=== PATIENT | female | born 1940 | race Caucasian/White ===

== ENCOUNTER 2023-12-07 09:45 | Day surgery (SDC) | payer MEDICARE, BC, SELFPAY ==
--- NOTE | 2023-12-07 | PATH_ITS ---
[facility] Accession Number: [id number] No. of containers..02 Tissue . 01 Material submitted: . PART A: colon - CECAL MASS PART B: rectum - RECTAL POLYP . 01 Diagnosis: Part A: CECAL MASS: 1. Colonic tissue with invasive adenocarcinoma, moderately differentiated. 2. No lymphovascular or perineural invasion identified. See comment. . Part B: RECTAL POLYP: Tubular adenoma. [facility] 12/09/2023 1143 Local . 01 Comment: Part A: These results were discussed with Dr. Bahena by Dr. Gibson on 12/09/2023 at 1125. The case has also been reviewed by Dr. Mcclellan, who concurs with the diagnosis. . 01 Electronically signed: . Jacinto Gibson MD, Pathologist NPI- [id number] . 01 Gross description: . Part A: CECAL MASS: Received in formalin are 2 fragment(s) of mckenzie, soft tissue measuring 0.2 x 0.2 x 0.2 cm to 0.3 x 0.3 x 0.3 cm submitted entirely in 1 cassette(s) . Part B: RECTAL POLYP: Received in formalin are 2 fragment(s) of mckenzie, soft tissue measuring 0.2 x 0.2 x 0.2 cm to 0.5 x 0.3 x 0.3 cm submitted entirely in 1 cassette(s) /IVET 12/09/2023 1143 Local . 01 Pathologist provided ICD-10: C18.0, D12.8 . 01 CPT . 554614, 242388, B87667, G70951 Specimen Comment: A courtesy copy of this report has been sent to [phone] Performed at: 01 [facility] [address] [place] [address] [address], [place], [place] [id number] MD Jacinto Gibson MD Phone: [phone]
[2023-12-07] MEDS: LACTATED RINGERS 1,000 ML 42 ML IV (11:05)
--- NOTE | 2023-12-07 11:10 | PM.HP.1 ---
History of Present Illness History of Present Illness Chief complaint: Dx Colonoscopy Narrative: Hematochezia [facility] Medical History (Updated 12/07/23 @ 11:07 by Jasmine Vieyra RN) Hemorrhoid Depression Hypercholesteremia Hypertension Breast cancer Rectal bleeding Aortic stenosis Meds Home Medications and Allergies Home Medications Medication Instructions Recorded Confirmed Type anastrozole 1 mg tablet 1 mg PO DAILY 12/07/23 12/07/23 History anastrozole 1 mg tablet 1 mg PO DAILY 12/07/23 12/07/23 History sertraline 50 mg tablet 50 mg PO DAILY 12/07/23 12/07/23 History Allergies Allergy/AdvReac Type Severity Reaction Status Date / Time No Known Drug Allergies Allergy Verified 12/07/23 11:03 Exam Narrative Exam Narrative: Oropharynx free of lesions Chest clear to auscultation percussion Cardiac exam reveals mild says systolic ejection murmur Assessment & Plan Assessment & Plan narrative: Rectal bleeding with virtually every bowel movement rule out neoplasia versus hemorrhoids. Risks, benefits, alternatives have been explained.
--- NOTE | 2023-12-07 11:11 | PM.OP.COLON ---
Operative Date/Time/Diagnoses Date of procedure: 12/07/23 Pre-op diagnosis: See indication and findings Procedure & Clinicians Study performed: Colonoscopy Indications: Rectal bleed Surgeon: Porfirio Bahena Procedure Notes Procedure in detail: After informed consent was obtained the patient was placed in left lateral decubitus position. The video colonoscope was introduced the rectum slowly advanced to the cecum. Preparation was good. On slow withdrawal mucosa was carefully examined. The scope was removed. The patient tolerated procedure well. Blood loss none Complications none Sedation mac Findings 1. Tortuous colon but eventually the cecum were just above the cecum was reached. 2. Mass lesion within what appears to be the cecum consistent with carcinoma. Biopsies taken which were soft to firm. 3. 8 mm sessile polyp at the anal verge appearing adenomatous and inside the dentate line. Cold biopsy taken and polyp removed. 3. Mild internal hemorrhoids without much bulbous this to them. No external hemorrhoid seen. I suggest that we Fadia have an appointment made with [facility] for consideration of right hemicolectomy. We will be in touch regarding the biopsies. For I are are start call you on this I well 3 prior your 1 are 1
[2023-12-07 11:15] VITALS: BP 125/50; PULSE 60; RESP 16; TEMP 36.3; O2SAT 96
[2023-12-07 12:31] VITALS: BP 97/33; PULSE 67; RESP 22; TEMP 36.9; O2SAT 92
[2023-12-07 12:36] VITALS: BP 108/50; PULSE 69; RESP 20; O2SAT 95
[2023-12-07 12:45] VITALS: BP 132/54; PULSE 65; RESP 20; O2SAT 96
[2023-12-07 12:49] VITALS: BP 132/46; PULSE 62; RESP 25; TEMP 36.7; O2SAT 98
[2023-12-07 12:57] VITALS: BP 117/40; PULSE 61; RESP 18; O2SAT 100
== END 2023-12-07 13:11 | disposition home or self-care (01) ==
PROVIDERS: PCP Nurse Practitioner Family; Referring Provider Nurse Practitioner; Visit Provider Internal Medicine Gastroenterology
PROC: 0DJD8ZZ Inspection of Lower Intestinal Tract, Via Natural or Artificial Opening Endoscopic (ICD-10-PCS; CPT 45378; principal; 2023-12-07 11:30)
DX: C18.0 Malignant neoplasm of cecum (principal); K64.8 Other hemorrhoids; D12.8 Benign neoplasm of rectum
CPT/HCPCS: 45380; J2704

== ENCOUNTER → 2023-12-14 11:40 | Outpatient (CLI) | payer MEDICARE, BC, SELFPAY ==
--- NOTE | 2023-12-14 11:43 | DI.CT.S_ITS ---
PROCEDURE: CT CHEST ABD PEL W CON INDICATIONS: colon mass staging TECHNIQUE: After the administration of intravenous contrast, 5 mm thick sections acquired from the lung apices to the symphysis. 5 mm coronal and sagittal reformats were performed, with additional 7 mm MIP reformats through the lungs. For radiation dose reduction, the following was used: automated exposure control, adjustment of mA and/or kV according to patient size. COMPARISON: None. FINDINGS: Image quality: Excellent. CHEST: Lower Neck: No enlarged lymph nodes. Thyroid: No thyroid nodules which require sonographic follow up, per consensus guidelines. Axillae: No enlarged lymph nodes. Chest Wall: Unremarkable. Lungs and Pleura: No pneumothorax or pleural effusions. Multiple solid pulmonary micro nodules. For example: -3 mm solid nodule, posterior left upper lobe (series 5, image 124). -4 mm solid nodule, posterior right upper lobe (series 5, image 111). Heart: Heart size is enlarged. No pericardial effusion. Two vessel coronary calcifications. Thoracic Vessels: The aorta and pulmonary arteries demonstrate normal size. Mediastinum and Eri: No enlarged lymph nodes. Esophagus: No wall thickening. No hiatal hernia. Oral contrast within the esophagus, suggestive of reflux or esophageal dysmotility. ABDOMEN: Liver: Scattered subcentimeter hypoattenuating lesions, too small to characterize by CT. Gallbladder: No radiopaque gallstones or wall thickening. Biliary ducts: No biliary dilation. Pancreas: No ductal dilation. Spleen: Size is within normal limits. Adrenal Glands: No adrenal nodules. Kidneys and Ureters: No hydronephrosis. No solid mass. No complex renal cystic lesion which requires follow up. Stomach and Bowel: Cecal mass encapsulating in the terminal ileum measuring 5.6 x 4.1 x 7.2 cm. Colonic diverticulosis without evidence of diverticulitis. Peritoneum: No abnormal intraperitoneal fluid. No free air. Ventral Wall: No significant ventral hernia. Abdominal Nodes: Enlarged mesenteric lymph nodes associated with the SMV. Examples include: -9 mm short axis node (series 2, image 94). -9 mm short axis node (series 2, image 95). Vessels: Aorta and inferior vena cava are normal in size. PELVIS: Pelvic Organs: Unremarkable. Bladder: No bladder wall thickening, accounting for underdistention. Pelvic Nodes: No enlarged lymph nodes. Miscellaneous: No inguinal hernias are seen. Bones: No aggressive osseous abnormality. IMPRESSION: Cecal mass encapsulating the terminal ileum measuring 5.6 x 4.1 x 7.2 cm. Regional mesenteric adenopathy. Multiple solid pulmonary micro nodules, indeterminate for metastatic disease. Close attention on follow-up. Scattered subcentimeter hypoattenuating liver lesions, too small to characterize by CT but probably small cysts. Dictated by: Wiliam Sung M.D. on 12/14/2023 at 14:56 Approved by: Wiliam Sung M.D. on 12/14/2023 at 15:05
[2023-12-14 12:16] LABS: BUN Creatinine Ratio 20.2 (6-22); Blood Urea Nitrogen 17 mg/dL (7-17); Calcium 8.7 mg/dL (8.4-10.2); Carbon Dioxide 27 mmol/L (22-32); Chloride 108 mmol/L (98-107); Estimated Glomerular Filt Rate > 60 mL/min (>60); Glucose 148 mg/dL (80-110); HEMOLYSIS < 15 (0-50); Potassium 4.2 mmol/L (3.4-5.1); Sodium 142 mmol/L (137-145)
[2023-12-14 12:46] LABS: Carcinoembryonic Antigen 2.4 ng/mL (0.1-3.0)
[2023-12-14 12:57] LABS: Add Manual Diff / Slide Review NO; Basophils Absolute Auto 100 /uL (0-100); Basophils Percent Auto 0.8 % (0-2); Eosinophils Absolute Auto 100 /uL (0-450); Eosinophils Percent Auto 1.1 % (2-4); Hematocrit 21.5 % (36-46); Lymphocytes Absolute Auto 1400 /uL (1100-4500); Mean Corpuscular Hemoglobin 27.6 PG (26-34); Mean Corpuscular Volume 89.1 fL (80-100); Monocytes Absolute Auto 1200 /uL (0-900); Monocytes Percent Auto 9.1 % (3-14); Neutrophils Absolute Auto 9800 /uL (1500-7000); Platelet Count 371 X10^3/uL (150-400); Red Blood Cell Count 2.41 X10^6/uL (4.0-5.2); Red Cell Distribution Width 17.5 % (11.6-14.8); White Blood Cell Count 12.6 X10^3/uL (4.5-11.0)
[2023-12-14 13:32] LABS: Hemoglobin 6.7 g/dL (12.0-16.0)
== END ==
PROVIDERS: PCP Nurse Practitioner Family; Referring Provider Surgery; Visit Provider Surgery
DX: K63.89 Other specified diseases of intestine (principal); R91.8 Other nonspecific abnormal finding of lung field; I25.10 Atherosclerotic heart disease of native coronary artery without angina pectoris; K57.90 Diverticulosis of intestine, part unspecified, without perforation or abscess without bleeding; R59.0 Localized enlarged lymph nodes
CPT/HCPCS: 36415; 71260; 74177; 80048; 82378; 85025; Q9967

== ENCOUNTER 2023-12-23 09:06 | Inpatient (IN) | payer MEDICARE, BC, SELFPAY ==
[2023-12-21 11:41] VITALS: BMI 25.6
--- NOTE | 2023-12-22 15:25 | P.OP.PRE_ITS ---
Pre-operative Note Interval Note History & Physical reviewed/Exam performed by Physician: Yes Changes to H&P: Yes H&P completed within 30 days and has changed as indicated here:: 83-year-old woman with right colon cancer here for colectomy. Past medical history is significant for mild aortic stenosis hypertrophic cardiomyopathy and iron- deficiency anemia secondary to the bleeding tumor. She is symptomatic from her anemia hematocrit today 19.2. She is typed and crossed and we anticipate transfusion of 1-2 units perioperatively. After discussion with anesthesia it is felt she would benefit from an open operation as compared to a laparoscopic approach to optimize her cardiac function i.e. improve venous return and minimize operative time. I discussed this with the patient and she is in agreement we will switch the plan to open right hemicolectomy.
[2023-12-23] VITALS (26 sets, daily range): BP systolic 108–173; BP diastolic 43–73; PULSE 59–73; RESP 6–24; TEMP 36.1–37.1; O2SAT 90–100; BMI 24.8
--- NOTE | 2023-12-23 | PATH_ITS ---
[facility] Accession Number: [id number] No. of containers..01 Tissue . 01 Material submitted: . colon - RIGHT COLON . 01 Diagnosis: RIGHT COLON, HEMICOLECTOMY: Invasive adenocarcinoma, moderately differentiated, with the following features: . AJCC CANCER CASE SUMMARY: Procedure: Right hemicolectomy. . TUMOR Tumor site: Cecum. Histologic type: Adenocarcinoma. Histologic type comment: A mucinous component is present. Histologic grade: G2, moderately differentiated. Tumor size Greatest dimension: 7.6 cm. Additional dimensions: 3.2 x 2.5 cm. Tumor extent: Tumor invades through muscularis propria into the pericolonic tissue. Macroscopic tumor perforation: Not identified. Lymphatic and/or vascular invasion: Not identified. Perineural invasion: Not identified. Tumor budding score: Intermediate. Tumor comment: Tumor closely approaches the serosal surface (within 0.2 mm of the serosal surface), but does not involve the serosal surface on the sections examined. . MARGINS Margin status: All margins negative for invasive carcinoma. Tumor is greater than 5 cm from all margins. . REGIONAL LYMPH NODES Number of lymph nodes with tumor: 1. Number of lymph nodes examined: 19. Tumor deposits: Not identified. . pTNM CLASSIFICATION (AJCC 8TH EDITION) pT category: pT3. pN category: pN1a. . [facility] 12/25/2023 1640 Local . 01 Electronically signed: . Jacinto Gibson MD, Pathologist NPI- [id number] . 01 Gross description: . Received in formalin with two patient identifiers and right colon, is a right colon with attached ileum measuring 2.0 cm in length by 1.9 cm in diameter attached with colon measuring 23.9 cm in length by 3.2 cm in average diameter with an appendix measuring 2.5 cm in length by 0.4 cm in diameter. The serosa is mckenzie and roughened with an area of puckering at the approximate area of the ileocecal valve measuring 2.3 cm in greatest dimension. The ileal margin is inked blue, the colon margin is inked black, the mesenteric and presumed radial margins are inked green, and the puckered area of serosa is inked red. The presumed remaining distal portion of the appendix is received detached and measures 1.7 cm in length by 0.5 cm in diameter. . Opening the specimen reveals an exophytic mass within the cecum adjacent to, but not grossly invading the ileocecal valve, measuring 7.6 x 3.2 x 2.5 cm. The lesion is located greater than 5 cm from all margins. Sectioning reveals the lesion to extend through the wall and grossly approach the red-inked area of puckered serosa. The remaining mucosa is pink-mckenzie and velvety with normal appearing folds, and no additional polyps or lesions identified. The egan average 0.3 cm with no diverticula identified. . Sectioning the appendix reveals a patent lumen averaging 0.1 cm in diameter with mckenzie intact egan that average 0.3 cm thick with no lesions identified. . Palpation reveals 19 mckenzie lymph node candidates ranging from 0.3 to 1.6 cm in greatest dimension. . Second Facing Baster sections are submitted as follows: A1: Black margin en face. A2: Blue and rep green margins en face. A3-A5: Lesion to nearest red-inked serosa. A6-A7: Lesion to normal. A8: Ileocecal valve. A9: Unremarkable mucosa. A10: One-half of bisected distal tip and cross-sections of appendix. A11: Single lymph node candidate that fragmented upon palpation. A12: Single bisected lymph node candidate. A13: Single lymph node candidate that is bisected and had partial fragmentation upon palpation. A14: Two bisected, differentially inked lymph node candidates. A15: Three intact lymph node candidates. A16: Five intact lymph node candidates. A17: Three intact lymph node candidates. A18: Three intact lymph node candidates. ([id number]) /MRV 12/24/2023 1251 Local . 01 Pathologist provided ICD-10: C18.0 . 01 CPT . 862065 Specimen Comment: A courtesy copy of this report has been sent to [phone] Performed at: 01 [facility] [address] [facility] [place] [facility] [place], [place], [place] [id number] MD Jacinto Gibson MD Phone: [phone]
[2023-12-23 10:10] LABS: Mean Corpuscular HGB Conc 30.7 % (30-36); Mean Corpuscular Hemoglobin 26.9 PG (26-34); Mean Corpuscular Volume 87.8 fL (80-100); Platelet Count 384 X10^3/uL (150-400); Red Blood Cell Count 2.18 X10^6/uL (4.0-5.2); Red Cell Distribution Width 17.1 % (11.6-14.8); White Blood Cell Count 8.9 X10^3/uL (4.5-11.0)
[2023-12-23 10:19] LABS: Hematocrit 19.2 % (36-46); Hemoglobin 5.9 g/dL (12.0-16.0)
--- NOTE | 2023-12-23 10:21 | SUR.PREOP ---
Critical Hbg 5.9 and Hct 19.2; Discussed with doctor Reyes face to face; plan to administer PRBCs per orders.
[2023-12-23] MEDS: LACTATED RINGERS 1,000 ML 21 ML IV ×2 (10:41→16:12)
[2023-12-23] MEDS: PIPERACILLIN/TAZO 3.375 GM in SODIUM CHLORIDE 0.9% 100 ML IV (11:53)
[2023-12-23] MEDS: BUPIVACAINE 0.25% (PF) VIAL 30 ML INJ (12:11)
[2023-12-23] MEDS: ACETAMINOPHEN IV 1,000 MG/100 ML VIAL 400 MG IV (12:11)
--- NOTE | 2023-12-23 12:36 | SUR.OPER ---
Supine on padded OR bed, head on pillow, right arm padded and tucked at side, left arm secured on padded armboard @ <90 degrees, legs uncrossed, pillow under knees, gel pad under upper thighs & bilateral heels,safety belt at thigh, tape over blanket over lower legs .
--- NOTE | 2023-12-23 12:50 | PM.AN.INVM ---
Invasive Monitor Note Procedure Procedure: Arterial Catheter Insertion Start Time: :15 Stop Time: :28 Indication: Intraoperative Hemodynamic Monitoring Timeout: :15 Barrier Precautions Utilized: Cap, Hand Hygiene, 2% Chlorhexidine Cutaneous Antisepsis, Sterile Gloves and Maintenance of Sterile Field Vessel Utilized: Radial Artery: Left Lines Catheters Utilized: 20 G Arrow Arterial Catheter Insertion Site Care: Sterile Occlusive Dressing Applied Ultrasound Ultrasound Guidance Utilized: Yes Ultrasound was used to identify the vessel. Assessed vessel was patent.: Radial Artery Ultrasound was used to visualize vascular needle entry into the: Radial Artery Limited exam reveals anatomically normal vessel with no apparent abnormal findings.: Yes Permanent ultrasound image obtained and interpretation documented.: No Complications Complications: none
--- NOTE | 2023-12-23 14:15 | PM.OP.1 ---
Operative Date/Time/Diagnoses Date of procedure: 12/23/23 Time of procedure: 14:15 Pre-op diagnosis: Colon cancer Post-op diagnosis: same Procedure & Clinicians Procedure: Open right hemicolectomy Same procedure as scheduled: Yes Indications: Fadia is an 83-year-old woman with symptomatic anemia found to have a large ulcerated mass of the right colon. Pathology demonstrates adenocarcinoma. Her staging workup suggests mesenteric lymphadenopathy no evidence of distant disease. Following discussion with the patient and her family she elects to proceed with a right hemicolectomy. She has a history of aortic stenosis and hypertrophic cardiomyopathy and following discussion with anesthesia we opted to proceed with a open colectomy as opposed to laparoscopic to optimize her cardiac function. Surgeon: Ervin Reyes Contemporary Or Modern Dancer: Vadim Berry Anesthesia Type: General and Peripheral nerve block (Tap) Operative Notes Findings: Firm mass within the cecum. Mild mesenteric lymphadenopathy. No evidence of distant metastatic disease Specimen(s): other (Right colon) Estimated Blood Loss (mL): 50 Procedure in detail: Patient was brought to the operating room placed supine on the table. Bilateral lower extremity compression devices were applied. General anesthesia was induced and she was intubated with an endotracheal tube. She received 3.375 g of Zosyn prior to skin incision. Dawson catheter was sterilely placed. She was prepped and draped in sterile fashion time-out was performed. Midline incision was made in the abdomen was entered. A general inspection of the abdomen was made and we saw no evidence of metastatic disease there is a firm mass within the cecum. We began with mobilization of the right colon from a lateral to medial approach. We began by opening the gastro colic ligament. Dissection was continued to the hepatic flexure. The sweep the duodenuml was visualized and the duodenum was left in the retroperitoneum out of harm's way. And then we followed the white line of Toldt inferiorly to the cecum. The attachments to the terminal ileum or dissected. We examined the psoas and the bifurcation of the iliac vessels in search for the right ureter and identified a structure consistent with the ureter. This was kept posterior out of harm's way. A window within the mesentery to the terminal ileum was made in the bowel was divided with the linear stapler BEATRIZ 75 mm blue. A similar window was made just distal to the hepatic flexure and the colon was divided in the same fashion. The mesentery was then divided using the LigaSure. Dissection was carried down to the point of takeoff for the ileocolic pedicle and this was suture ligated twice on the stay side and then sealed on the specimen side. The right colon/specimen was passed off the field. We then fashioned a [id number] functional end and anastomosis. A colotomy and an enterotomy or made in each limb and a 3rd staple load was used to create a common channel. The anastomosis was inspected it was widely patent and hemostatic. Crotch stitch was placed for reinforcement. The common opening was then closed in a running fashion using PDS suture and was imbricated using a 2nd layer of silk suture. The anastomosis was under no tension and was well perfused without evidence of leak. The mesenteric defect was then closed using a Vicryl suture. The abdomen was irrigated with sterile saline returned clear hemostasis was checked once again and then the abdomen was closed using a 1. PDS suture. The subcutaneous tissue was reapproximated using 3-0 Vicryl and the skin closed with 4-0 Monocryl followed by the application of Dermabond. Patient tolerated the operation well they were extubated and transferred to recovery in stable condition. Complications: none Post-operative Condition: stable Disposition: Acute Care
[2023-12-23 15:49] LABS: Hemoglobin 8.4 g/dL (12.0-16.0); Mean Corpuscular HGB Conc 32.2 % (30-36); Mean Corpuscular Hemoglobin 28.2 PG (26-34); Mean Corpuscular Volume 87.6 fL (80-100); Platelet Count 348 X10^3/uL (150-400); Red Blood Cell Count 2.97 X10^6/uL (4.0-5.2); Red Cell Distribution Width 16.1 % (11.6-14.8); White Blood Cell Count 12.1 X10^3/uL (4.5-11.0)
[2023-12-23] MEDS: ACETAMINOPHEN 325 MG TABLET 650 MG PO (19:24)
[2023-12-24 02:57] VITALS: O2SAT 98
--- NOTE | 2023-12-24 06:11 | PC.NURSE ---
assistant casino shift manager [employer] notified that patients total urine output 375mL. dark yellow with some sediment in catheter bag. Pt denies fever,chills,sob, or flank pain. Pt does have some post opt pain in center abdominal area, abdominal dressing CDI. VS WNL. VEGETABLE SPECKER bladder scanned Pt and no residual urine was found. Pt only fluid intake has been IVF going at 21mL/hr since coming to floor. 230mL in during shift supervisor melting and 375 mL output.
[2023-12-24 06:16] LABS: Add Manual Diff / Slide Review NO; Basophils Absolute Auto 0 /uL (0-100); Basophils Percent Auto 0.3 % (0-2); Eosinophils Absolute Auto 0 /uL (0-450); Hemoglobin 7.9 g/dL (12.0-16.0); Lymphocytes Absolute Auto 900 /uL (1100-4500); Lymphocytes Percent Auto 6.8 % (25-40); Mean Corpuscular HGB Conc 31.7 % (30-36); Mean Corpuscular Hemoglobin 27.6 PG (26-34); Monocytes Absolute Auto 1100 /uL (0-900); Monocytes Percent Auto 8.5 % (3-14); Neutrophils Absolute Auto 10900 /uL (1500-7000); Neutrophils Percent Auto 84.4 % (50-75); Platelet Count 331 X10^3/uL (150-400); Red Blood Cell Count 2.88 X10^6/uL (4.0-5.2); Red Cell Distribution Width 16.2 % (11.6-14.8); White Blood Cell Count 12.9 X10^3/uL (4.5-11.0)
[2023-12-24 06:23] LABS: BUN Creatinine Ratio 14.8 (6-22); Blood Urea Nitrogen 9 mg/dL (7-17); Carbon Dioxide 26 mmol/L (22-32); Chloride 111 mmol/L (98-107); Estimated Glomerular Filt Rate > 60 mL/min (>60); Glucose 112 mg/dL (80-110); HEMOLYSIS < 15 (0-50); Potassium 3.6 mmol/L (3.4-5.1); Sodium 138 mmol/L (137-145)
[2023-12-24 08:00] VITALS: BP 124/49; PULSE 65; RESP 16; TEMP 36.9; O2SAT 94
[2023-12-24] MEDS: ACETAMINOPHEN 325 MG TABLET 650 MG PO ×2 (09:00→16:57)
[2023-12-24] MEDS: SERTRALINE 50 MG TABLET PO (09:01)
[2023-12-24] MEDS: ENOXAPARIN 40 MG/0.4 ML SYRINGE SUBCUT (09:01)
[2023-12-24] MEDS: ANASTROZOLE 1 MG TABLET PO (09:01)
--- NOTE | 2023-12-24 09:58 | OT.IP.EVAL ---
Current Diagnoses Malignant neoplasm of colon, unspecified (12/23/23) Surgery Performed Operation Date: 12/23/23 10:45 Actual Procedures p Right Hemicolectomy(Right) - Ervin Reyes MD Past Medical History (Last Updated 12/22/23 @ 07:16 by Jesenia Cohen, RN) Anemia Aortic stenosis Breast cancer (~2013) Depression Easy bruisability Fibromyalgia Hemorrhoid Hypercholesteremia Hypertension Hypertrophic cardiomyopathy Rectal bleeding Surgical History (Last Updated 12/21/23 @ 12:10 by Jesenia Cohen RN) H/O lumpectomy Hx of bilateral cataract extraction Occupational Therapy Inpatient Evaluation/Re-Eval M1 PT/OT-IP Prior Functional Status Start: 12/24/23 08:40 Freq: NEEDED Status: Active Protocol: Document 12/24/23 12:02 CGR (Rec: 12/24/23 12:39 CGR [id number]) Medical Review Prior Functional Status Medical History Reviewed Yes Diet/Fluid Consistency Regular Communication Pt is an effective verbal communicator. Mobility and Gait Pt has a SPC but does not use. Per P.T. report, pt has a hx of falls. Activities of Daily Living and IADL's Pt was IND in all ADLs and I ADLs. She has sons in the area that come to help with lawn etc. Social History Household Members none Living Arrangements House Number of Floors (Floors) Two Floors Number of Stairs To Enter/Railing? Pt states that there are multiple steps inside to negociate between rooms: 2 steps with one rail into dining room and 1 step with 2 rails to enter home Home Environment Tub/Shower Home Equipment Straight Cane,Grab Bars Near Toilet,Grab Bars In Shower Employment Status Retired Additional Social History Comment Pt has a walking stick at home . 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 M2 OT-IP Current Condition Start: 12/24/23 12:01 Freq: Status: Active Protocol: Document 12/24/23 12:02 CGR (Rec: 12/24/23 12:39 CGR [id number]) Occupational Therapy Current Condition Current Condition Evaluation Date 12/24/23 Treatment Diagnosis 12/23/23 R open hemicolectomy for carcinoma Diagnosis Onset Date 12/23/23 M3 OT- IP Subjective and Pain Start: 12/24/23 12:01 Freq: Status: Active Protocol: Document 12/24/23 12:02 CGR (Rec: 12/24/23 12:39 CGR [id number]) OT- Subjective Occupational Therapy Visit Type Type Initial Evaluation Visit Start Time 09:30 Visit Stop Time 09:58 OT Pain Assessment Pain When Pain Assessed During Mobility Pain Present Pain Present Pain Reported Location Abdomen Intensity 5 Scale Used Numeric (0 - 10) Management Techniques Distraction,Modification of Treatment,Re-positioning, Timing of Activity with Medications M4 OT- IP ADL's Start: 12/24/23 12:01 Freq: Status: Active Protocol: Document 12/24/23 12:02 CGR (Rec: 12/24/23 12:39 CGR [id number]) OT [id number] Comments OT Self-Feeding Comments not meal time OT ADL-Grooming General Evaluation Grooming Ability Standby Assistance Areas Needing Assistance Face Washing Comments OT Grooming Comments standing at sink OT ADL-Oral Care General Eval Oral Care Ability Standby Assistance Areas of Assistance Brushing Teeth Comments Oral Care Comments standing at sink OT ADL-Dressing General Eval Lower Body Dressing Ability Standby Assistance Areas Needing Assistance Socks Comments OT Dressing Comments seated in chair pt demonstrated ability to doff and don socks to both LE. OT ADL-Toileting General Evaluation Toileting Ability Independent Comments OT Toileting Comments Pt attemtped to urinate seated on toielt. She was unable to void OT ADL-Bathing Comments OT Bathing Comments not performed M5 OT- IP IADL's Start: 12/24/23 12:01 Freq: Status: Active Protocol: Document 12/24/23 12:02 CGR (Rec: 12/24/23 12:39 CGR [id number]) OT-Instrumental Activities of Daily Living Deficits IADL Deficits Identified No Deficits Home Safety Awareness Awareness of Need for Assistance at Home Good Awareness Ability to Problem Solve Emergency Able to Problem Solve Situations Medication Management Medication Management No Deficits Identified Money Management Money Management No Deficits Identified Meal Preparation Meal Preparation No Deficits Identified Furniture Finisher Furniture Finisher No Deficits Identified Driving Driving Comments 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 M6 OT- IP Functional Cognition Start: 12/24/23 12:01 Freq: Status: Active Protocol: Document 12/24/23 12:02 CGR (Rec: 12/24/23 12:39 CGR [id number]) Cognitive Factors Limiting Selfcare Function Cognitive Ability Level of Alertness Alert Patient Orientation Name,Age,Birthday,Month,Date, Year,Day of Week,Place, Situation Attention Span Ability Capable of Focused Attention, Capable of Sustained Attention Ability to Follow Commands Able to Follow One Step Commands with Increased Time, Able to Follow One Step Commands with Repetition OT- Vision and Hearing OT- Hearing Assessment OT- Hearing Assessment WFL OT- Vision Assessment Visual Acuity Glasses For Reading Visual Attentiveness WFL Vision Assessment Comments Attempted occular pursuits and pt was unable to consistently follow. Pt states she sees the finger to follow and inconsistently follows. M7 OT- IP Mobility and Balance Start: 12/24/23 12:01 Freq: Status: Active Protocol: Document 12/24/23 12:02 CGR (Rec: 12/24/23 12:39 CGR [id number]) OT-Transfer Assessment Sit to and From Stand Sit to and from Stand Standby Assistance Transfers Transfer Ability Standby Assistance Technique Transfer Destination Chair,Toilet Transfer Technique Stand Step Pivot Devices Transfer Assistive Devices Gait Belt,Front Wheeled Walker Comments Mobility Comments Pt moved around the room with SBA but with SOB with minimal exertion. OT- Balance Assessment Sitting Balance and Reactions Static Sitting Balance Ability Good Dynamic Sitting Balance Ability Good M8 OT- IP Objective Assessments Start: 12/24/23 12:01 Freq: Status: Active Protocol: Document 12/24/23 12:02 CGR (Rec: 12/24/23 12:39 CGR [id number]) OT Gross Range of Motion Upper Extremity Range of Motion Assessment Within Functional Limits OT Strength Upper Extremity Strength Assessment Within Functional Limits Comments Strength Comments 3+/5 OT- Coordination Assessment Upper Extremity Finger to Nose Test Within Functional Limits Finger Tapping Test Within Functional Limits OT-Muscle Tone Assessment Muscle Tone WNL Yes OT Sensation Assessment Edema Edema Absent M9 OT- IP Assessment and Plan Start: 12/24/23 12:01 Freq: Status: Active Protocol: Document 12/24/23 12:02 CGR (Rec: 12/24/23 12:39 CGR [id number]) OT Summary Assessment and Plan Potential Rehabilitation Potential Good Analytic Complexity at Evaluation Low Summary OT Impairments Strength,Functional Mobility, Bathing,Shower Transfers, Activity Tolerance Progress Towards Goals Progressing Toward Goals Assessment Summary Pt presents as a low complexity evaluation s/p admit for R open hemicolectomy for carcinoma. Pt is progressing well and appears to be close to her baseline for most ADLs but her activity tolerance is much lower than her baseline. Pt will continue to benefit from OT services and recommend d/c home with family support and home health services. Goals Grooming Goal Independent Dressing Goal Independent Toileting Goal Independent Bathing Goal Independent Toilet Transfer Goal Independent Shower Transfer Goal Independent Days to Meet Goals 2 Frequency of Treatment Frequency Of Treatment Once a Day Treatment Plan OT Treatment Plan ADL Training,Functional Mobility,Patient/Family Education,Discharge Planning Other Treatment Recommendations and Next shower, energy conservation Treatment Focus Discharge Recommendations OT Discharge Recommendations Home,Home Health Transportation Needs at Discharge Private Vehicle
--- NOTE | 2023-12-24 11:51 | PT.IIE ---
Current Diagnoses Malignant neoplasm of colon, unspecified (12/23/23) Surgery Performed Operation Date: 12/23/23 10:45 Actual Procedures p Right Hemicolectomy(Right) - Ervin Reyes MD Surgical History (Last Updated 12/21/23 @ 12:10 by Jesenia Cohen, RN) H/O lumpectomy Hx of bilateral cataract extraction Medical History (Last Updated 12/22/23 @ 07:16 by Jesenia Cohen, RN) Anemia Aortic stenosis Breast cancer (~2013) Depression Easy bruisability Fibromyalgia Hemorrhoid Hypercholesteremia Hypertension Hypertrophic cardiomyopathy Rectal bleeding Physical Therapy Inpatient Evaluation/Re-Eval M1 PT/OT-IP Prior Functional Status Start: 12/24/23 08:40 Freq: NEEDED Status: Active Protocol: Document 12/24/23 10:45 MB (Rec: 12/24/23 11:27 MB [id number]) Medical Review Prior Functional Status Medical History Reviewed Yes Diet/Fluid Consistency Regular Communication WNLs Mobility and Gait I, had falls Activities of Daily Living and IADL's I Social History Household Members none Living Arrangements House Number of Floors (Floors) Two Floors Number of Stairs To Enter/Railing? Pt states that there are multiple steps inside to negociate between rooms: 2 steps with one rail into dining room and 1 step with 2 rails to enter home Home Environment Tub/Shower Home Equipment Straight Cane Employment Status Retired Additional Social History Comment Pt has a walking stick at home . OT to complete further home equipment at home. M2 PT-IP Current Condition Start: 12/24/23 08:40 Freq: NEEDED Status: Active Protocol: Document 12/24/23 10:45 MB (Rec: 12/24/23 11:27 MB [id number]) Physical Therapy Current Condition Current Condition Evaluation Date 12/24/23 Treatment Diagnosis Pt with right colon cancer and s/p partial colectomy M3 PT-IP Subjective Start: 12/24/23 08:40 Freq: NEEDED Status: Active Protocol: Document 12/24/23 10:45 MB (Rec: 12/24/23 11:27 MB [id number]) Subjective Physical Therapy Visit Type Type Initial Evaluation Visit Start Time 10:45 Visit Stop Time 11:00 Number of INVOICE CODER Visits 0 Physical Therapy Visit Comments Patient Comments Pt states that she is tired and would like to take a nap. Therapy Pain Assessment Pain When Pain Assessed At Rest Pain Present Pain Present Denied Pain M4 PT-IP Mobility and Gait Start: 12/24/23 08:40 Freq: NEEDED Status: Active Protocol: Document 12/24/23 10:45 MB (Rec: 12/24/23 11:27 MB [id number]) PT-Bed Mobility Assessment Rolling Level of Assist Independent Sit to Supine Sit to Supine Standby Assistance Scooting Scooting to Edge of Bed Standby Assistance PT-Transfer Assessment Sit to and From Stand Sit to and from Stand Contact Guard Assistance Equipment Transfer Assistive Device Gait Belt,Front Wheeled Walker Orthotic/Prosthetic Devices or Brace: No Transfers Transfer Destination Bed Transfer Technique Ambulating Transfer Ability Level of Assist Contact Guard Assistance,1 Person Assistance,Use of Upper Extremities Comments Mobility Comments Pt does a good job pushing up from the chair. Her O2 sats on RA at rest are 90% and they do not read again readily after short mobility. She reports 1/4 Dyspnea scale. Gait Assessment Gait Gait Assistance Required: Standby Assistance Distance (Feet) 40 Able to Maintain Weight Bearing Status No During Gait Assistive Devices Assistive Device Gait Belt,Front Wheeled Walker Orthotic/Prosthetic Devices or Brace: No Gait Deviations General Gait Pattern Decreased Stride Length, Decreased Feet Clearance, Flexed Trunk Factors Limiting Gait Function Factors Limiting Gait Function Decreased Activity Tolerance, Pain,Poor Balance,Poor Safety Awareness Comments Gait Comments Pt gait trains around the bed and back at least 40' with RW and slow mobility with SINGER. Pt reports her abdomen only feels uncomfortable. Pt states that she does not have room in her house for a walker given spread out sets of steps PT-Balance Assessment Sitting Balance and Reactions Static Sitting Balance Ability Good Dynamic Sitting Balance Ability Good Standing Balance and Reactions Static Standing Balance Ability Good Dynamic Standing Balance Ability Good Device Used RW M5 PT-IP Objective Assessments Start: 12/24/23 08:40 Freq: NEEDED Status: Active Protocol: Document 12/24/23 10:45 MB (Rec: 12/24/23 11:27 MB [id number]) Orientation Orientation/Cognition Level of Alertness Alert Orientation Name,Age,Birthday,Month,Date, Year,Day of Week,Place, Situation Language Function Ability No Deficits Noted Safety Awareness Decreased Safety Awareness Memory Description No Deficits Noted Comments Pt reports a history of falls d/t low blood (anemia) and she does not appear to have insight about ongoing fall and injury risk and that maybe having a different AD may be helpful in fall reduction. Pt has a life line that she does not have set up. Son to assist at d/c. Gross Range of Motion Upper Extremity ROM Impairments Defer to OT Lower Extremity ROM Assessment Within Functional Limits Strength Lower Extremity Strength Assessment Within Functional Limits M6 PT-IP Treatment Start: 12/24/23 08:40 Freq: NEEDED Status: Active Protocol: Document 12/24/23 10:45 MB (Rec: 12/24/23 11:51 MB [id number]) Physical Therapy Treatment Education Education Provided Safety M7 PT-IP Assessment and Plan Start: 12/24/23 08:40 Freq: NEEDED Status: Active Protocol: Document 12/24/23 10:45 MB (Rec: 12/24/23 11:51 MB [id number]) PT Summary Assessment and Plan Potential Rehabilitation Potential Fair Status of Condition at Evaluation Evolving Summary Impairments Pain,Balance,Bed Mobility, Transfers,Gait,Activity Tolerance Progress Towards Goals Progressing Toward Goals Assessment Summary Pt is an 83 y/o female presenting with SINGER after colon surgery and blood loss anemia. Her Hgb was 7.9 this a .m. She only states that she her abdomen is uncomfortable today and she does move slowly and with some antalgic movement. Pt will benefit from ongoing acute and post-acute PT to improve balance and I. Pt reports multiple falls at home d/t anemia and that she does not think a walker is useful in her home d/t many steps inside. Goals Bed Mobility Goal Independent Transfer Goal Independent,Cane,Front Wheeled Walker Gait Goal Independent,Cane,Front Wheel Walker Gait Distance 100 Other Goals Pt will ascend and descend 2 steps with one rail to allow safe home mobility. Days to Meet Goals 5 Frequency of Treatment Frequency Of Treatment Once a Day Treatment Plan Physical Therapy Treatment Plan Bed Mobility Training,Transfer Training,Gait Training, Therapeutic Exercise,Balance Retraining,Post Op Education, Discharge Planning,Hot or Cold Pack Precautions Abdominal Surgery Precautions Log Roll,Lifting Restrictions, Gait Belt above Incisional Area Weight Bearing Status Weight Bearing Status Weight Bear as Tolerated Recommendations To Nursing Amount of Assist Needed 1 Person Assist Discharge Recommendations PT Discharge Recommendations Home with 27/04 Assist Available,Home Health Other Discharge Recommendations Con't to assess if RW can be an option for home (may need two ADs in the home given steps) Transportation Needs at Discharge Private Vehicle
[2023-12-24 12:00] VITALS: O2SAT 94
--- NOTE | 2023-12-24 12:46 | PM.PNPO.1 ---
Subjective Subjective Date Patient Seen: 12/24/23 Time Patient Seen: 12:46 Interval history: POD 1 R hemicolectomy for cancer No acute overnight events Tolerating full liquid diet Minimal pain Exam Vital Signs (past 8 hours): - 12/24/23 08:00 12/24/23 08:00 Temperature 98.5 F Pulse Rate 65 Respiratory Rate 16 Blood Pressure 124/49 L Pulse Oximetry 94 94 Oxygen Delivery Method Room Air Oxygen Flow Rate 0 Oxygen Delivery Method Room Air Oxygen Flow Rate 0 Narrative Exam Narrative: Gen-Adult woman alert and oriented Abdomen-soft appropriately tender to palpation Objective Labs 12/24/23 05:50 12/24/23 05:50 Labs: Laboratory Results - last 24 hr 12/23/23 12/23/23 12/24/23 10:03 15:20 05:50 WBC 12.1 H 12.9 H RBC 2.97 L 2.88 L Hgb 8.4 L 7.9 L Hct 26.0 L 25.0 L MCV 87.6 87.0 MCH 28.2 27.6 MCHC 32.2 31.7 RDW 16.1 H 16.2 H Plt Count 348 331 Neut % (Auto) 84.4 H Lymph % (Auto) 6.8 L [place] % (Auto) 8.5 Eos % (Auto) 0.0 L Baso % (Auto) 0.3 Neut # (Auto) 77495 H Lymph # (Auto) 900 L [place] # (Auto) 1100 H Eos # (Auto) 0 Baso # (Auto) 0 Sodium 138 Potassium 3.6 Chloride 111 H Carbon Dioxide 26 BUN 9 Creatinine 0.61 Estimated GFR > 60 BUN/Creatinine Ratio 14.8 Glucose 112 H Calcium 8.0 L Blood Type A Positive Antibody Screen Negative Crossmatch See Detail [facility] Medical History (Updated 12/22/23 @ 07:16 by Jesenia Cohen RN) Anemia Easy bruisability Fibromyalgia Hypertrophic cardiomyopathy Hemorrhoid Depression Hypercholesteremia Hypertension Breast cancer (~2013) Rectal bleeding Aortic stenosis Surgical History (Updated 12/21/23 @ 12:10 by Jesenia Cohen RN) Hx of bilateral cataract extraction H/O lumpectomy Social History marital status: unknown household members: none lives independently: Yes occupational status: previously employed Smoking Status: Never smoker alcohol intake: never substance use type: does not use Assessment & Plan Post-op Postoperative Procedures: Procedures Operation Date: 12/23/23 10:45 Actual Procedure Side Surgeon p Right Hemicolectomy Right Ervin Reyes MD Postoperative status narrative: 83F POD 1 sp right hemicolectomy for colon cancer -Full liquid diet -DC IVF -Remove manriquez catheter -PT/OT -pLovenox and SCDs
[2023-12-24 16:00] VITALS: O2SAT 94
--- NOTE | 2023-12-24 16:55 | DIET.CONS ---
Dietary Consultation Note Admission Date: 12/23/2023 09:06 Assessment: 83 y F admitted for right hemicolectomy. Nutrition consulted for weight loss. Met with pt at bedside. Pt reports 25# in weight loss since and a decrease in PO intake starting in March 2023. Pt relates decrease in intakes to a decrease in energy. Starting in , pt began having TV dinners instead of cooking due to low energy. Reports she eats about half as much as she normally did or leaves half of her food uneaten at meals. Experiences dry mouth and consumes fruit, celery, or lettuce to help. Denies difficulty swallowing. Dietary recall: *pt reports leaving about 50% of food on plate or eating 1/2 this amount B-egg, toast, jernigan, sometimes small muffin L-[place] D-Tv dinner 3-5 glasses of water per day Nutrition focused physical exam performed w/ permission: Muscle loss: -moderate loss in temporalis -severe loss in interosseous -mild loss in clavicle region Subcutaneous fat loss: -mild loss in orbital fat pads -mild loss in buccal fat pads Ht: 167.64 cm Wt: 69.853 kg BMI: 24.8 UBW: 82.73 kg per pt report in end of Sep 2023 (15.6% weight loss in 3 months, severe) Last BM: 12/23/23 (12/23/23 18:28) MNA: 9 José Antonio Score: 21 Diet: 12/23/23 Dinner Full Liquid Diet Diet Modifications: Protein supplement with each meal Nutrition Percent Meal Consumed 50% 12/23/23 18:00 Labs: RBC 2.88 X10^6/uL (4.0-5.2) L 12/24/23 05:50 Hgb 7.9 g/dL (12.0-16.0) L 12/24/23 05:50 Hct 25.0 % (36-46) L 12/24/23 05:50 Creatinine 0.61 mg/dL (0.52-1.04) 12/24/23 05:50 Nutrition Diagnosis: Severe Chronic Protein Calorie Malnutrition r/t decreased ability to consume sufficient energy as evidenced by >75% decrease of estimated energy needs (severe), 15.6% weight loss in 3 months (severe), moderate to severe loss of muscle mass (temporalis, interosseous), mild subcutaneous fat loss (orbital, buccal), and right hemicolectomy d/t colon cancer. Interventions: 1. Continue ONS at every meal 2. Discussed having Ensure Plus/enlive or similar high protein drink BID, pt agreeable; reviewed other protein source and encouraged adequate intake 3. Nutrition tips to help with dry mouth provided EER: [id number] kcals/day (25-28 kcals/kg) 95-105 g PRO/day (1.5 grams protein/kg) Monitoring/Evaluations: diet advancement, ONS tolerance, weight, will f/u in 3 days Electronically Signed by: Guerline Gonzalez 12/24/23 16:55 Clinical Dietitian [address] [address]
--- NOTE | 2023-12-24 19:07 | PC.NURSE ---
Day shift: Pt unable to void after 8 hours. Bladder scanned at 1815 and patient only has 77mL in bladder. Pt reports it does not feel like she has to go. PIV fluids last night only running at 21mL/hr. Pushed PO fluids and patient states she will drink more water. Will continue to monitor.
[2023-12-24 20:00] VITALS: BP 123/61; PULSE 75; RESP 16; TEMP 37.1; O2SAT 97
[2023-12-25] VITALS (7 sets, daily range): BP systolic 102–127; BP diastolic 62–83; PULSE 81–97; RESP 16–18; TEMP 36.3–36.8; O2SAT 94–98
[2023-12-25] MEDS: ENOXAPARIN 40 MG/0.4 ML SYRINGE SUBCUT (08:59)
[2023-12-25] MEDS: SERTRALINE 50 MG TABLET PO (08:59)
[2023-12-25] MEDS: ANASTROZOLE 1 MG TABLET PO (09:00)
--- NOTE | 2023-12-25 09:22 | CM.DANOTE ---
Initial DCP Assessment Visit Note Reviewed EMR and team rounds for pt's medical status and updates. Met with pt at bedside to introduce self and role. Pt was found to be awake, oriented, sitting up in her recliner and able to participate in discussion re: d/c planning needs/preferences. Pt resides independently in her own home in [place]. She has 2-sons living in the [facility] that help her with her yard and care coordination needs. She also has a very involved mental health clinical case manager in the community that is helping with coordinating her in-home support at the time of d/c back home, her holiness community is also very involved and plan on providing for assistance and support as well. Her son, Sinan, will transport her home at d/c once she's been medically cleared. Payor: Medicare PCP: Belén Enciso Pt is a 83 year-old F with a recent hx of having bloody stools with every bowel movement, had a colonoscopy that showed a mass concerning for malignancy. Pathology confirmed colon cancer. She was brought to the OR on 12/23/23 for a planned right-open colectomy. She was slowly improved and is tolerating a liquid diet. Plan is to advance her diet today, if she does well, she will likely d/c home tomorrow. This BUTCHER'S ASSISTANT made a referral to [facility] for post-operative rehab support. DCP will continue to follow and update pt/family with plan for HH once she's ready for d/c. Discharge Planning/Care Management CM Discharge Assessment Start: 12/25/23 09:20 Freq: Status: Active Protocol: Document 12/25/23 09:20 DPL (Rec: 12/25/23 09:22 DPL [id number]) Discharge Planning Assessment Assigned Division Sales Manager ROHINI Stallings Advance Directives? Yes Advance Directives on File No History Provided By Patient,Medical Record Has Patient been admitted in last 30 No days? Prior Living Arrangements House Household Members none Type of transporation used prior to Drives own vehicle admit Independent with ADL's Yes Is patient alert and oriented? Yes Caregiver for Another No DME Already Rented / Owned Elevated Toilet Seat,FWW / Walker,Cane Patient/Family Preference Home with Home Health Barriers to Discharge No Referrals Initiated Home Health If patient plan is home with home health Yes : Has signed face to face form been completed? Medicare Choice List Provided Yes Medicare choice list reviewed on patient electronic tablet [facility] Yes Whiteboard Updated in Patient Room with Yes name and ext. # of Division Sales Manager Review Status In Process Please Provide Date Initial DC 12/25/23 Assessment Was Performed Pre-Anesthesia Assessment Start: 12/21/23 11:41 Freq: Status: Complete Protocol: Document 12/21/23 11:41 CAB (Rec: 12/21/23 12:45 CAB [id number]) Pre-Anesthesia Assessment Preferred Name Miss Loaiza Patient Information Reviewed Via Phone Assessment Assessment Completed With Patient Primary Care Provider Belén Enciso Seen Specialist in Last 12 Months Yes Specialist Seen Vehicle Mechanic,General surgeon, Oncologist Primary Language Khmer Adobe Layer Helper Required No Height 165.1 cm Weight 69.853 kg Body Mass Index (BMI) 25.6 Hearing Ability Normal Visual Assist Magnifying Glass Dentition Type Teeth, Natural Present,Teeth, Missing Barriers to Learning None Hx Anesthesia Reactions No Hx Family Anesthesia Reaction No Hx Malignant Hyperthermia No Hx Blood Transfusions Yes: Anemia Anesthesia Review Requested No Capsule Filling Machine Operator No alcohol intake never Smoking Status Never smoker Substance Use Type does not use Pain Present Denied Pain History of Falling (Recent or History of Yes ) Patient is completely paralyzed or No completely immobile Mental Status Oriented to own ability Is patient on oxygen? No Does patient have SINGER/SOB No Hx Sleep Apnea No CPAP/BIPAP use not prescribed Currently Taking a Beta Sis Yes: Nadolol Can You Climb a Flight of Stairs Without No SOB Hx Chest Pain No Hx SOB Yes Hx Syncope or Dizziness No Anti-Coagulant Therapy No Has a Vehicle Mechanic Yes: Last visit 09/10/[address] Ansari Cardiac Testing No Hx Pacemaker/ICD No Pacemaker Rep Required? No Comment Cardiac records scanned and in surgery folder Diet Type At Home Regular Dysphagia No Gastrointestinal Symptoms Rectal Bleeding Bladder Pattern Urgency Urinary Catheter Present No Hx Urinary Self Catheterization No Diabetes No Patient No Lactating No Presence of External or Internal Medical No Devices Received a COVID vaccine? Yes Received all doses? Yes Marital Status / Lives With none Current Living Arrangements House Number of Floors (Floors) Two Floors Support System Child/Children Does the Patient Have Assistance After Yes: Son will stay w/pt Surgery Patient Discharge Plan Description Return Home Comment Pt advised 2 day length of stay per surgeon Feels Safe in Current Environment Yes Been Physically Hurt or Threatened By a No Person in Current Environment Do you have thoughts of harming yourself None or others? Are you currently considering suicide? No Do you have a plan to hurt yourself or No Plan others? Do You Have Any Spiritual Beliefs That No May Affect Your HC Choices? Do You Have Any Cultural Practices That No May Affect Your HC Choices? Comment [employer] Who Can We Speak to About Patient's Care Family, friends Identifying Code for Release of Patient Declines to issue Information Health Care Proxy/Next of Kin Antoine (son) Stas (son) Health Care Proxy Phone Number Antoine: [phone] [facility]: [phone] Emergency Contact Name Antoine (son) Stas (son) Emergency Contact Phone Number Antoine: [phone] [facility]: [phone] Advance Directives? Yes Advance Directives on File No Requested Patient Bring Advanced Yes Directives DOS Power of Orchestra Leader Yes PAC Instructions Assistance for 24 hours post- op,Medications to take/avoid, Nasal antibiotic,No ETOH/ petroleum product on skin DOS, NPO,Post-op transportation,Pre -op antibiotic,Pre-surgical wash,Sensory aids,Sturdy shoes /comfortable clothes,Do not bring valuables and remove jewelry
--- NOTE | 2023-12-25 10:32 | PT-IP ANOTE ---
Pt refused to work with PT this morning. She reports being tired and would like to rest.
--- NOTE | 2023-12-25 12:49 | PT-IP ANOTE ---
Pt refused to work with PT this afternoon, states her son should be arriving soon and wants her stomach to settle after lunch. PT will check on pt tomorrow if still in hospital.
--- NOTE | 2023-12-25 16:05 | OT.IP.TRT ---
Current Diagnoses Malignant neoplasm of colon, unspecified (12/23/23) Surgery Performed Operation Date: 12/23/23 10:45 Actual Procedures p Right Hemicolectomy(Right) - Ervin Reyes MD Occupational Therapy Treatment Note M2 OT-IP Current Condition Start: 12/24/23 12:01 Freq: Status: Active Protocol: Document 12/24/23 12:02 CGR (Rec: 12/24/23 12:39 CGR [id number]) Occupational Therapy Current Condition Current Condition Evaluation Date 12/24/23 Treatment Diagnosis 12/23/23 R open hemicolectomy for carcinoma Diagnosis Onset Date 12/23/23 M3 OT- IP Subjective and Pain Start: 12/24/23 12:01 Freq: Status: Active Protocol: Document 12/25/23 16:28 CCC (Rec: 12/25/23 16:35 CCC [id number]) OT- Subjective Occupational Therapy Visit Type Type Treatment Note Visit Start Time 15:45 Visit Stop Time 16:05 Occupational Therapy Visit Comments Patient Comments Pt to tired to get up and agreed to go over energy conservation needs with PT and also for equipment needs. Patient/Caregiver Goals TO go home. OT Pain Assessment Pain When Pain Assessed At Rest Pain Present Pain Present Pain Reported M4 OT- IP ADL's Start: 12/24/23 12:01 Freq: Status: Active Protocol: Document 12/25/23 16:28 CCC (Rec: 12/25/23 16:35 [facility] [id number]) OT [id number] Comments OT Self-Feeding Comments not meal time OT ADL-Grooming Comments OT Grooming Comments Pt states did earlier. OT ADL-Oral Care Comments Oral Care Comments Pt states did earlier. OT ADL-Dressing Comments OT Dressing Comments Able to talk about LB dressing equipment needs. OT ADL-Toileting Comments OT Toileting Comments Pt not having to go at this time. OT ADL-Bathing Comments OT Bathing Comments not performed M5 OT- IP IADL's Start: 12/24/23 12:01 Freq: Status: Active Protocol: Document 12/24/23 12:02 CGR (Rec: 12/24/23 12:39 CGR [id number]) OT-Instrumental Activities of Daily Living Deficits IADL Deficits Identified No Deficits Home Safety Awareness Awareness of Need for Assistance at Home Good Awareness Ability to Problem Solve Emergency Able to Problem Solve Situations Medication Management Medication Management No Deficits Identified Money Management Money Management No Deficits Identified Meal Preparation Meal Preparation No Deficits Identified Yarn Mercerizer Operator Yarn Mercerizer Operator No Deficits Identified Driving Driving Comments 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 M6 OT- IP Functional Cognition Start: 12/24/23 12:01 Freq: Status: Active Protocol: Document 12/25/23 16:28 [facility] (Rec: 12/25/23 16:35 [facility] [id number]) Cognitive Factors Limiting Selfcare Function Cognitive Comments Cognitive Assessment Comments Able to go over energy conservation needs and for pt to try to follow through with needs she had already started at home. For example, she has a Life Alert but not sure if it is still set-up, has not completed the installation for her Walk in Tub yet, and just takes the pills out of the bottles and encouraged her to use a pill organizer. Pt able to go over some energy conservation information with OT. Pt states a latter-day friend in putting together people to come and help herwith chores and bring her food. M7 OT- IP Mobility and Balance Start: 12/24/23 12:01 Freq: Status: Active Protocol: Document 12/24/23 12:02 CGR (Rec: 12/24/23 12:39 R [id number]) OT-Transfer Assessment Sit to and From Stand Sit to and from Stand Standby Assistance Transfers Transfer Ability Standby Assistance Technique Transfer Destination Chair,Toilet Transfer Technique Stand Step Pivot Devices Transfer Assistive Devices Gait Belt,Front Wheeled Walker Comments Mobility Comments Pt moved around the room with SBA but with SOB with minimal exertion. OT- Balance Assessment Sitting Balance and Reactions Static Sitting Balance Ability Good Dynamic Sitting Balance Ability Good M8 OT- IP Objective Assessments Start: 12/24/23 12:01 Freq: Status: Active Protocol: Document 12/24/23 12:02 CGR (Rec: 12/24/23 12:39 R [id number]) OT Gross Range of Motion Upper Extremity Range of Motion Assessment Within Functional Limits OT Strength Upper Extremity Strength Assessment Within Functional Limits Comments Strength Comments 3+/5 OT- Coordination Assessment Upper Extremity Finger to Nose Test Within Functional Limits Finger Tapping Test Within Functional Limits OT-Muscle Tone Assessment Muscle Tone WNL Yes OT Sensation Assessment Edema Edema Absent M9 OT- IP Assessment and Plan Start: 12/24/23 12:01 Freq: Status: Active Protocol: Document 12/25/23 16:28 [facility] (Rec: 12/25/23 16:35 [facility] [id number]) OT Summary Assessment and Plan Potential Rehabilitation Potential Good Analytic Complexity at Evaluation Low Summary OT Impairments Strength,Functional Mobility, Bathing,Shower Transfers, Activity Tolerance Assessment Summary Pt states just not feeling up to getting up at this time and able to go over equipment needs, suggestions for safety and energy conservation. Pt looking to go home with assist when medically stable. Pt will benefit from home health. Goals Grooming Goal Independent Dressing Goal Independent Toileting Goal Independent Bathing Goal Independent Toilet Transfer Goal Independent Shower Transfer Goal Independent Days to Meet Goals 2 Frequency of Treatment Frequency Of Treatment Once a Day Treatment Plan OT Treatment Plan ADL Training,Functional Mobility,Patient/Family Education,Discharge Planning Discharge Recommendations OT Discharge Recommendations Home,Home Health Transportation Needs at Discharge Private Vehicle
--- NOTE | 2023-12-25 17:42 | PC.NURSE ---
Pt Denies any discomfort. Abd kaveh moring CDI. SL intact/patent. Up in chair for meals. Possible D?C tomorrow. Call light w/in reach, bed alarm on for pt safety. COntinue w/plan of care.
[2023-12-25] MEDS: SODIUM CHLORIDE 0.9% FLUSH 10 ML IV (21:43)
--- NOTE | 2023-12-25 22:13 | PM.PNPO.1 ---
Subjective Subjective Date Patient Seen: 12/25/23 Time Patient Seen: 17:00 Interval history: Postoperative day 2 status post open right hemicolectomy for colon cancer. + flatus Urinating after catheter removal Ambulated with physical therapy Pain is well controlled Exam Vital Signs (past 8 hours): - 12/25/23 16:00 12/25/23 20:19 12/25/23 20:20 Temperature 98.3 F Pulse Rate 81 Respiratory Rate 18 Blood Pressure 102/62 Pulse Oximetry 96 94 94 Oxygen Delivery Method Room Air Room Air Oxygen Delivery Method Room Air Oxygen Flow Rate 0 Narrative Exam Narrative: General adult woman alert oriented no acute distress Abdomen soft appropriately tender to palpation. Midline incision with dressing intact clean. Objective Labs 12/24/23 05:50 12/24/23 05:50 PFSH Medical History (Updated 12/22/23 @ 07:16 by Jesenia Cohen RN) Anemia Easy bruisability Fibromyalgia Hypertrophic cardiomyopathy Hemorrhoid Depression Hypercholesteremia Hypertension Breast cancer (~2013) Rectal bleeding Aortic stenosis Surgical History (Updated 12/21/23 @ 12:10 by Jesenia Cohen RN) Hx of bilateral cataract extraction H/O lumpectomy Social History marital status: unknown household members: none lives independently: Yes occupational status: previously employed Smoking Status: Never smoker alcohol intake: never substance use type: does not use Assessment & Plan Post-op Postoperative Procedures: Procedures Operation Date: 12/23/23 10:45 Actual Procedure Side Surgeon p Right Hemicolectomy Right Ervin Reyes MD Postoperative status narrative: 83-year-old woman postoperative day 2 status post right hemicolectomy for colon cancer. She is recovering appropriately after surgery. -continue full liquid diet -DC IV fluids -SCDs and Lovenox -anticipate discharge home within the next 1-2 days -PTOT
[2023-12-26] VITALS: O2SAT 94
[2023-12-26 04:00] VITALS: BP 140/62; PULSE 74; RESP 16; TEMP 36.1; O2SAT 94
[2023-12-26 08:00] VITALS: BP 123/75; PULSE 93; RESP 16; TEMP 36.3; O2SAT 96; O2SAT 97
[2023-12-26] MEDS: SERTRALINE 50 MG TABLET PO (09:31)
[2023-12-26] MEDS: ANASTROZOLE 1 MG TABLET PO (09:31)
[2023-12-26] MEDS: ENOXAPARIN 40 MG/0.4 ML SYRINGE SUBCUT (09:31)
--- NOTE | 2023-12-26 10:59 | PT.IPTN ---
Current Diagnoses Malignant neoplasm of colon, unspecified (12/23/23) Surgery Performed Operation Date: 12/23/23 10:45 Actual Procedures p Right Hemicolectomy(Right) - Ervin Reyes MD Physical Therapy Treatment Note M2 PT-IP Current Condition Start: 12/24/23 08:40 Freq: NEEDED Status: Active Protocol: Document 12/24/23 10:45 MB (Rec: 12/24/23 11:27 MB [id number]) Physical Therapy Current Condition Current Condition Evaluation Date 12/24/23 Treatment Diagnosis Pt with right colon cancer and s/p partial colectomy M3 PT-IP Subjective Start: 12/24/23 08:40 Freq: NEEDED Status: Active Protocol: Document 12/26/23 11:31 TS (Rec: 12/26/23 11:41 TS [id number]) Subjective Physical Therapy Visit Type Type Treatment Note Visit Start Time 10:59 Visit Stop Time 11:22 Number of STEAMSHIP AGENT Visits 1 Physical Therapy Visit Comments Patient Comments Pt found resting in chair, is agreeable to PT. M4 PT-IP Mobility and Gait Start: 12/24/23 08:40 Freq: NEEDED Status: Active Protocol: Document 12/26/23 11:31 TS (Rec: 12/26/23 11:41 TS [id number]) PT-Transfer Assessment Sit to and From Stand Sit to and from Stand Standby Assistance Equipment Transfer Assistive Device Gait Belt,Straight Cane,Small Based Quad Cane Orthotic/Prosthetic Devices or Brace: No Comments Mobility Comments STS from chair with SPC CGA, pt required cues for pushing off from arms of chair. pt ambulated ~15' with SPC, she is unsteady and reaches for bed rails for support. She performed STS with quad cane CGA from bed. She ambulated ~ 30' with quad cane, continues to be unsteady and reaching for bed rails. She had x1LOB with quad cane, recovered balance with use of cane and no assist. She performed steps x3 wtih grab support CGA. Spoke at length on the benefits of useing a FWW at home, pt continues to report she can't fit a FWW in her house. She eventually decided she may borrow one from a friend to try it out in her home. pt was left in chair, all needs met. Gait Assessment Gait Gait Assistance Required: Standby Assistance Distance (Feet) 55 Able to Maintain Weight Bearing Status No During Gait Assistive Devices Assistive Device Gait Belt,Straight Cane,Small Based Quad Cane Orthotic/Prosthetic Devices or Brace: No Gait Deviations General Gait Pattern Decreased Stride Length, Decreased Feet Clearance, Flexed Trunk Factors Limiting Gait Function Factors Limiting Gait Function Decreased Activity Tolerance, Pain,Poor Balance,Poor Safety Awareness Comments Gait Comments See mobility comments Stair Climbing Assessment Evaluation Level of Assist On Stairs Contact Guard Assistance,1 Person Assistance Devices Stair Climbing Assistive Devices Left Railing Technique/Endurance Stair Climbing Direction Ascend and Descend Stair Climbing Technique Step to Step Number of Steps Climbed 3 Comments Stair Climbing Comments See mobility comments PT-Balance Assessment Sitting Balance and Reactions Static Sitting Balance Ability Good Dynamic Sitting Balance Ability Good Standing Balance and Reactions Static Standing Balance Ability Fair Dynamic Standing Balance Ability Fair Device Used SPC/Quad cane Comments Other Balance Tests/Deviations/Treatment See mobility comments : M5 PT-IP Objective Assessments Start: 12/24/23 08:40 Freq: NEEDED Status: Active Protocol: Document 12/24/23 10:45 MB (Rec: 12/24/23 11:27 MB [id number]) Orientation Orientation/Cognition Level of Alertness Alert Orientation Name,Age,Birthday,Month,Date, Year,Day of Week,Place, Situation Language Function Ability No Deficits Noted Safety Awareness Decreased Safety Awareness Memory Description No Deficits Noted Comments Pt reports a history of falls d/t low blood (anemia) and she does not appear to have insight about ongoing fall and injury risk and that maybe having a different AD may be helpful in fall reduction. Pt has a life line that she does not have set up. Son to assist at d/c. Gross Range of Motion Upper Extremity ROM Impairments Defer to OT Lower Extremity ROM Assessment Within Functional Limits Strength Lower Extremity Strength Assessment Within Functional Limits M6 PT-IP Treatment Start: 12/24/23 08:40 Freq: NEEDED Status: Active Protocol: Document 12/26/23 11:31 TS (Rec: 12/26/23 11:41 TS [id number]) Physical Therapy Treatment Education Education Provided Safety M7 PT-IP Assessment and Plan Start: 12/24/23 08:40 Freq: NEEDED Status: Active Protocol: Document 12/26/23 11:31 TS (Rec: 12/26/23 11:41 [id number]) PT Summary Assessment and Plan Potential Rehabilitation Potential Fair Summary Impairments Pain,Balance,Bed Mobility, Transfers,Gait,Activity Tolerance Progress Towards Goals Progressing Toward Goals Assessment Summary Fadia is making some progress with her mobility. She progressed to stairs x3 with single rail CGA. She ambulated with SPC and quad cane in room ~55' SBA. She is unsteady with use of canes and reaches for bedrails in room assist with balance. She had x1LOB with use of quad cane, she recovered balance with quad cane and no assist. She continues to state she can't use a FWW in her home but may borrow one from a friend to try it out. PT is recommending pt return home with assist w/ HHPT and use of FWW. Goals Bed Mobility Goal Independent Transfer Goal Independent,Cane,Front Wheeled Walker Gait Goal Independent,Cane,Front Wheel Walker Gait Distance 100 Other Goals Pt will ascend and descend 2 steps with one rail to allow safe home mobility. Days to Meet Goals 5 Frequency of Treatment Frequency Of Treatment Once a Day Treatment Plan Physical Therapy Treatment Plan Bed Mobility Training,Transfer Training,Gait Training, Therapeutic Exercise,Balance Retraining,Post Op Education, Discharge Planning,Hot or Cold Pack Precautions Abdominal Surgery Precautions Log Roll,Lifting Restrictions, Gait Belt above Incisional Area Weight Bearing Status Weight Bearing Status Weight Bear as Tolerated Recommendations To Nursing Amount of Assist Needed Standby Assistance Discharge Recommendations PT Discharge Recommendations Home with Assistance,Home Health Other Discharge Recommendations Recommending use of FWW at home. pt may borrow one from friend to use at home but does not believe it will fit in her house. Transportation Needs at Discharge Private Vehicle
[2023-12-26 12:00] VITALS: O2SAT 95
--- NOTE | 2023-12-26 12:58 | PM.PN.1 ---
Subjective Subjective Date Patient Seen: 12/26/23 Time Patient Seen: 12:58 Interval history: Tolerating diet Pain is well controlled Having bowel function and had a bowel movement She still has some trouble getting out of bed on her own. Exam Vital Signs (past 8 hours): - 12/26/23 08:00 12/26/23 08:00 Temperature 97.3 F L Pulse Rate 93 H Respiratory Rate 16 Blood Pressure 123/75 Pulse Oximetry 97 96 Oxygen Delivery Method Room Air Oxygen Flow Rate 0 Oxygen Delivery Method Room Air Oxygen Flow Rate 0 Narrative Exam Narrative: Incision clean dry and intact Objective Labs 12/24/23 05:50 12/24/23 05:50 PFS Medical History (Updated 12/22/23 @ 07:16 by Jesenia Cohen, RN) Anemia Easy bruisability Fibromyalgia Hypertrophic cardiomyopathy Hemorrhoid Depression Hypercholesteremia Hypertension Breast cancer (~2013) Rectal bleeding Aortic stenosis Surgical History (Updated 12/21/23 @ 12:10 by Jesenia Cohen RN) Hx of bilateral cataract extraction H/O lumpectomy Social History marital status: unknown household members: none lives independently: Yes occupational status: previously employed Smoking Status: Never smoker alcohol intake: never substance use type: does not use Assessment & Plan Assessment and plan (1) Colon cancer: Qualifiers: Colon location: ascending Qualified Code(s): C18.2 - Malignant neoplasm of ascending colon Status: Acute Plan Since she is still having some trouble getting out of bed on her own and she lives alone she should stay at least 1 more day
--- NOTE | 2023-12-26 13:08 | CM.DPC ---
DCP Cont. Reviewed EMR and team rounds for status updates. Per Dr. Diego, pt will not d/c until Thursday. Cont. to monitor for any final d/c recommendations for home support (HH?).
[2023-12-26 16:00] VITALS: O2SAT 95
[2023-12-26] MEDS: ONDANSETRON 4 MG/2 ML INJ IV (16:05)
--- NOTE | 2023-12-26 17:44 | PC.NURSE ---
Pt A/O Denies discomfort Did have episode of nausea/vomiting after lunch Order received for zofran & given---ptaresting quietly at this time. MIdline ABD [facility] dsg CDI. Call light w/in reach, pt calls appropriately for needs. ' Continue w/plan of care.
[2023-12-26 20:00] VITALS: BP 136/79; PULSE 86; RESP 17; TEMP 36.2; O2SAT 94
[2023-12-26] MEDS: SODIUM CHLORIDE 0.9% FLUSH 10 ML IV (20:23)
[2023-12-27] VITALS: O2SAT 93
[2023-12-27] MEDS: ONDANSETRON 4 MG/2 ML INJ IV (03:20)
[2023-12-27 04:00] VITALS: O2SAT 94
[2023-12-27 08:00] VITALS: BP 119/74; PULSE 107; RESP 16; TEMP 36.6; O2SAT 95
--- NOTE | 2023-12-27 09:31 | PM.PN.1 ---
Subjective Subjective Date Patient Seen: 12/27/23 Time Patient Seen: 09:31 Interval history: Fadia had several episodes of emesis last night. Feeling better this morning after a BM Exam Vital Signs (past 8 hours): - 12/27/23 04:00 Pulse Oximetry 94 Oxygen Delivery Method Room Air Oxygen Flow Rate 0 Oxygen Delivery Method Room Air Oxygen Flow Rate 0 Narrative Exam Narrative: Abdomen soft appropriately tender Objective Labs 12/24/23 05:50 12/24/23 05:50 Labs: Laboratory Results - last 24 hr 12/23/23 10:03 Crossmatch See Detail [facility] Medical History (Updated 12/22/23 @ 07:16 by Jesenia Cohen RN) Anemia Easy bruisability Fibromyalgia Hypertrophic cardiomyopathy Hemorrhoid Depression Hypercholesteremia Hypertension Breast cancer (~2013) Rectal bleeding Aortic stenosis Surgical History (Updated 12/21/23 @ 12:10 by Jesenia Cohen, RN) Hx of bilateral cataract extraction H/O lumpectomy Social History marital status: unknown household members: none lives independently: Yes occupational status: previously employed Smoking Status: Never smoker alcohol intake: never substance use type: does not use Assessment & Plan Assessment and plan (1) Colon cancer: Qualifiers: Colon location: ascending Qualified Code(s): C18.2 - Malignant neoplasm of ascending colon Status: Acute Plan Likely mild ileus Stay with sips of clears today
[2023-12-27] MEDS: ENOXAPARIN 40 MG/0.4 ML SYRINGE SUBCUT (09:37)
[2023-12-27] MEDS: SERTRALINE 50 MG TABLET PO (09:37)
[2023-12-27] MEDS: ANASTROZOLE 1 MG TABLET PO (09:37)
[2023-12-27] MEDS: SODIUM CHLORIDE 0.9% FLUSH 10 ML IV ×2 (09:40→21:11)
--- NOTE | 2023-12-27 10:26 | PC.NURSE ---
Patients MLI is open to area and liudmila present. She denies nausea this morning and tolerated sips of clear liquids. Up the the bathroom with sba and had a small formed bm in the bathroom. Dr. Diego into see patient and is going to leave her on clears as she had some nausea yesterday and had emesis. She is sitting up in the chair now.
--- NOTE | 2023-12-27 12:40 | PT-IP ANOTE ---
Attempted to see pt at 12:35, pt refused PT stating she just tried to eat and is feeling sick and nauseous. Pt agreeable to getting up with nursing staff later today.
--- NOTE | 2023-12-27 13:45 | CM.DPNOTE ---
DCP Note PHARMACEUTICAL LABORATORY TECHNICIAN reviewed EMR. Per surgeon note, anticipate Thursday dc due to slowly advancing diet. PHARMACEUTICAL LABORATORY TECHNICIAN spoke with Sandra at [facility]. need new referral information, specifically H&P. No H&P available, PHARMACEUTICAL LABORATORY TECHNICIAN faxed initial referral information as able. PHARMACEUTICAL LABORATORY TECHNICIAN completed new F2f. PHARMACEUTICAL LABORATORY TECHNICIAN met with pt in room- pt resting in chair. Pt reports having lots of local friend/family support, friend to transport home at ok. Pt confirms agreeable to [facility]. Pt reports eager to dc home after no longer vomiting. Hopeful for tomorrow. Plan; anticipate dc home Thursday/when medically stable due to slowly advancing diet. [facility] to follow. CM team will continue to follow closely. ROHINI Haque
[2023-12-27 21:00] VITALS: BP 115/74; RESP 16; TEMP 36.7; O2SAT 95
[2023-12-28 08:00] VITALS: BP 150/59; PULSE 94; RESP 16; TEMP 36.1; O2SAT 89; O2SAT 97
[2023-12-28] MEDS: ENOXAPARIN 40 MG/0.4 ML SYRINGE SUBCUT (09:31)
[2023-12-28] MEDS: SERTRALINE 50 MG TABLET PO (09:31)
[2023-12-28] MEDS: ANASTROZOLE 1 MG TABLET PO (09:32)
[2023-12-28] MEDS: SODIUM CHLORIDE 0.9% FLUSH 10 ML IV ×2 (09:50→21:00)
--- NOTE | 2023-12-28 09:55 | PT.IPTN ---
Current Diagnoses Malignant neoplasm of ascending colon (12/23/23) Malignant neoplasm of colon, unspecified (12/23/23) Surgery Performed Operation Date: 12/23/23 10:45 Actual Procedures p Right Hemicolectomy(Right) - Ervin Reyes MD Physical Therapy Treatment Note M2 PT-IP Current Condition Start: 12/24/23 08:40 Freq: NEEDED Status: Active Protocol: Document 12/24/23 10:45 MB (Rec: 12/24/23 11:27 MB [id number]) Physical Therapy Current Condition Current Condition Evaluation Date 12/24/23 Treatment Diagnosis Pt with right colon cancer and s/p partial colectomy M3 PT-IP Subjective Start: 12/24/23 08:40 Freq: NEEDED Status: Active Protocol: Document 12/28/23 10:36 ZF (Rec: 12/28/23 10:49 ZF [id number]) Subjective Physical Therapy Visit Type Type Treatment Note Visit Start Time 09:55 Visit Stop Time 10:30 Number of SHELLFISH GROWER Visits 2 Physical Therapy Visit Comments Patient Comments Pt resting in chair, agreeable to PT. Therapy Pain Assessment Pain When Pain Assessed At Rest Pain Present Pain Present Denied Pain M4 PT-IP Mobility and Gait Start: 12/24/23 08:40 Freq: NEEDED Status: Active Protocol: Document 12/28/23 10:36 ZF (Rec: 12/28/23 10:49 ZF [id number]) PT-Transfer Assessment Sit to and From Stand Sit to and from Stand Standby Assistance Equipment Transfer Assistive Device Gait Belt,Straight Cane,Small Based Quad Cane Orthotic/Prosthetic Devices or Brace: No Transfers Transfer Destination Chair,Toilet,Wheelchair Transfer Technique Stand Step Pivot Transfer Ability Level of Assist Standby Assistance Comments Mobility Comments Pt amb in hallway w/2ww, 2x150 ' SBA. Pt dems one minor LOB able to correct herself. Pt asc/jesus alberto x3 stairs SBA using BL HR. Pt states her stairs at home have a grab bar at the top of the stairs, and so reaches high on the HR to simultate home environment. Pt has one LOB when standing at top of stairs, and lets go of both HRs in order to explain something. Able to correct herself. Pt continues to report that she can't use a 2ww in her house, but will use one for community amb. Pt amb in room short distance w/quad cane, requires CGA/SBA. Pt reaches for egan, and doorways, with non-cane hand. Toilet transfer is SBA. Pt completes hygiene at sink x4 mins of standing balance, using L UE for support at counter. Gait Assessment Gait Gait Assistance Required: Standby Assistance Distance (Feet) 300 Able to Maintain Weight Bearing Status Yes During Gait Assistive Devices Assistive Device Gait Belt,Small Based Quad Cane,Front Wheeled Walker Orthotic/Prosthetic Devices or Brace: No Gait Deviations General Gait Pattern Decreased Stride Length, Decreased Feet Clearance, Flexed Trunk Factors Limiting Gait Function Factors Limiting Gait Function Decreased Activity Tolerance, Pain,Poor Balance,Poor Safety Awareness Comments Gait Comments See Mobility Comments Stair Climbing Assessment Evaluation Level of Assist On Stairs Standby Assistance,1 Person Assistance Devices Stair Climbing Assistive Devices Left Railing,Right Railing Technique/Endurance Stair Climbing Direction Ascend and Descend Stair Climbing Technique Step to Step Number of Steps Climbed 3 Comments Stair Climbing Comments See mobility comments PT-Balance Assessment Sitting Balance and Reactions Static Sitting Balance Ability Good Dynamic Sitting Balance Ability Good Standing Balance and Reactions Static Standing Balance Ability Fair Dynamic Standing Balance Ability Fair Device Used Quad cane,2ww M5 PT-IP Objective Assessments Start: 12/24/23 08:40 Freq: NEEDED Status: Active Protocol: Document 12/24/23 10:45 MB (Rec: 12/24/23 11:27 MB [id number]) Orientation Orientation/Cognition Level of Alertness Alert Orientation Name,Age,Birthday,Month,Date, Year,Day of Week,Place, Situation Language Function Ability No Deficits Noted Safety Awareness Decreased Safety Awareness Memory Description No Deficits Noted Comments Pt reports a history of falls d/t low blood (anemia) and she does not appear to have insight about ongoing fall and injury risk and that maybe having a different AD may be helpful in fall reduction. Pt has a life line that she does not have set up. Son to assist at d/c. Gross Range of Motion Upper Extremity ROM Impairments Defer to OT Lower Extremity ROM Assessment Within Functional Limits Strength Lower Extremity Strength Assessment Within Functional Limits M6 PT-IP Treatment Start: 12/24/23 08:40 Freq: NEEDED Status: Active Protocol: Document 12/28/23 10:36 ZF (Rec: 12/28/23 10:49 ZF [id number]) Physical Therapy Treatment Education Education Provided Safety M7 PT-IP Assessment and Plan Start: 12/24/23 08:40 Freq: NEEDED Status: Active Protocol: Document 12/28/23 10:36 MARK (Rec: 12/28/23 10:49 MARK [id number]) PT Summary Assessment and Plan Potential Rehabilitation Potential Fair Summary Impairments Pain,Balance,Bed Mobility, Transfers,Gait,Activity Tolerance Progress Towards Goals Progressing Toward Goals Assessment Summary Fadia is progressing with her mobility and activity tolerance. Amb x300' w/2ww in hallway, as she says she will use the 2ww for outdoor amb. She is less stable with quad cane, which is what she says she will use inside her house, as she believes a 2ww will not fit in the narrow spaces of her home. Pt asc/jesus alberto x3 steps w/SBA. Her only LOB is when standing at the top of the stairs and explaining something and she lets go of HR and has lateral LOB. Goals Bed Mobility Goal Independent Transfer Goal Independent,Cane,Front Wheeled Walker Gait Goal Independent,Cane,Front Wheel Walker Gait Distance 100 Other Goals Pt will ascend and descend 2 steps with one rail to allow safe home mobility. Days to Meet Goals 5 Frequency of Treatment Frequency Of Treatment Once a Day Treatment Plan Physical Therapy Treatment Plan Bed Mobility Training,Transfer Training,Gait Training, Therapeutic Exercise,Balance Retraining,Post Op Education, Discharge Planning,Hot or Cold Pack Precautions Abdominal Surgery Precautions Log Roll,Lifting Restrictions, Gait Belt above Incisional Area Weight Bearing Status Weight Bearing Status Weight Bear as Tolerated Recommendations To Nursing Amount of Assist Needed Standby Assistance Discharge Recommendations PT Discharge Recommendations Home with Assistance,Home Health Other Discharge Recommendations Recommending use of FWW at home for increased safety, as pt is more stable with it than quad cane. Transportation Needs at Discharge Private Vehicle
--- NOTE | 2023-12-28 16:13 | CM.DPNOTE ---
GRAPE CRUSHER reviewed EMR. Per chart review, pt remains on clear liquid diet as of 4:15pm, no update from surgeon at this time. Per RN, pt doing well and did better with PT/OT. GRAPE CRUSHER spoke with Sandra at [facility]. Able to accept pt. SREE Workman kindly agreed to fax updated clinicals to [facility]. Plan: anticipate home with [facility] to follow when stable. CM team will continue to follow closely. ROHINI Haque
--- NOTE | 2023-12-28 16:54 | OT.IP.TRT ---
Current Diagnoses Malignant neoplasm of ascending colon (12/23/23) Malignant neoplasm of colon, unspecified (12/23/23) Surgery Performed Operation Date: 12/23/23 10:45 Actual Procedures p Right Hemicolectomy(Right) - Ervin Reyes MD Occupational Therapy Treatment Note M2 OT-IP Current Condition Start: 12/24/23 12:01 Freq: Status: Active Protocol: Document 12/24/23 12:02 CGR (Rec: 12/24/23 12:39 CGR [id number]) Occupational Therapy Current Condition Current Condition Evaluation Date 12/24/23 Treatment Diagnosis 12/23/23 R open hemicolectomy for carcinoma Diagnosis Onset Date 12/23/23 M3 OT- IP Subjective and Pain Start: 12/24/23 12:01 Freq: Status: Active Protocol: Document 12/28/23 16:51 CGR (Rec: 12/28/23 16:54 CGR [id number]) OT- Subjective Occupational Therapy Visit Type Type Treatment Note Visit Start Time 16:05 Visit Stop Time 16:28 Notes Pt requesting to get up to the toilet. OT Pain Assessment Pain When Pain Assessed At Rest Pain Present Pain Present Denied Pain M4 OT- IP ADL's Start: 12/24/23 12:01 Freq: Status: Active Protocol: Document 12/28/23 16:51 CGR (Rec: 12/28/23 16:54 CGR [id number]) OT [id number] Comments OT Self-Feeding Comments not meal time OT ADL-Grooming Comments OT Grooming Comments pt declined OT ADL-Oral Care Comments Oral Care Comments pt declined OT ADL-Dressing Comments OT Dressing Comments not performed OT ADL-Toileting General Evaluation Toileting Ability Standby Assistance Comments OT Toileting Comments Pt urinated and passed gas seated on toielt with extra time. OT ADL-Bathing Comments OT Bathing Comments not performed, pt declined M5 OT- IP IADL's Start: 12/24/23 12:01 Freq: Status: Active Protocol: Document 12/24/23 12:02 CGR (Rec: 12/24/23 12:39 CGR [id number]) OT-Instrumental Activities of Daily Living Deficits IADL Deficits Identified No Deficits Home Safety Awareness Awareness of Need for Assistance at Home Good Awareness Ability to Problem Solve Emergency Able to Problem Solve Situations Medication Management Medication Management No Deficits Identified Money Management Money Management No Deficits Identified Meal Preparation Meal Preparation No Deficits Identified Income Auditor Income Auditor No Deficits Identified Driving Driving Comments 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 M6 OT- IP Functional Cognition Start: 12/24/23 12:01 Freq: Status: Active Protocol: Document 12/25/23 16:28 [facility] (Rec: 12/25/23 16:35 [facility] [id number]) Cognitive Factors Limiting Selfcare Function Cognitive Comments Cognitive Assessment Comments Able to go over energy conservation needs and for pt to try to follow through with needs she had already started at home. For example, she has a Life Alert but not sure if it is still set-up, has not completed the installation fot her Walk in Tub yet, and just takes the pills out of the bottles and encouraged her to use a pill organizer. Pt able to go over some energy conservation information with OT. Pt states a religion friend in putting together people to come and help her and bring her food. M7 OT- IP Mobility and Balance Start: 12/24/23 12:01 Freq: Status: Active Protocol: Document 12/28/23 16:51 CGR (Rec: 12/28/23 16:54 CGR [id number]) OT- Bed Mobility Assessment Supine to Sit Supine to Sit Assist Standby Assistance Sit to Supine Sit to Supine Assist Standby Assistance Scooting Scooting to Edge of Bed Standby Assistance OT-Transfer Assessment Sit to and From Stand Sit to and from Stand Standby Assistance Transfers Transfer Ability Standby Assistance Technique Transfer Destination Bed,Toilet Transfer Technique Stand Step Pivot Devices Transfer Assistive Devices Gait Belt,Front Wheeled Walker Comments Mobility Comments Pt ambualted from bed to toielt and return. OT- Gait Assessment Gait Gait Assistance Required: Standby Assistance Assistive Devices Assistive Device Gait Belt,Front Wheeled Walker Comments Gait Ability Comments mobility in room OT- Balance Assessment Sitting Balance and Reactions Static Sitting Balance Ability Good Dynamic Sitting Balance Ability Good M8 OT- IP Objective Assessments Start: 12/24/23 12:01 Freq: Status: Active Protocol: Document 12/24/23 12:02 CGR (Rec: 12/24/23 12:39 CGR [id number]) OT Gross Range of Motion Upper Extremity Range of Motion Assessment Within Functional Limits OT Strength Upper Extremity Strength Assessment Within Functional Limits Comments Strength Comments 3+/5 OT- Coordination Assessment Upper Extremity Finger to Nose Test Within Functional Limits Finger Tapping Test Within Functional Limits OT-Muscle Tone Assessment Muscle Tone WNL Yes OT Sensation Assessment Edema Edema Absent M9 OT- IP Assessment and Plan Start: 12/24/23 12:01 Freq: Status: Active Protocol: Document 12/28/23 16:51 CGR (Rec: 12/28/23 16:54 CGR [id number]) OT Summary Assessment and Plan Potential Rehabilitation Potential Good Analytic Complexity at Evaluation Low Summary OT Impairments Strength,Functional Mobility, Bathing,Shower Transfers, Activity Tolerance Assessment Summary Pt agreeable to getting up to the toilet then requests to sit EOB for a few minutes. Pt demonstrates good sitting balance before getting back to bed. Pt is likely to discharge today or tomorrow from the hospital. Goals Grooming Goal Independent Dressing Goal Independent Toileting Goal Independent Bathing Goal Independent Toilet Transfer Goal Independent Shower Transfer Goal Independent Days to Meet Goals 2 Frequency of Treatment Frequency Of Treatment Once a Day Treatment Plan OT Treatment Plan ADL Training,Functional Mobility,Patient/Family Education,Discharge Planning Other Treatment Recommendations and Next shower, energy conservation Treatment Focus Discharge Recommendations OT Discharge Recommendations Home,Home Health Transportation Needs at Discharge Private Vehicle
--- NOTE | 2023-12-28 17:55 | P.PN_ITS ---
Subjective Subjective Date Patient Seen: 12/28/23 Time Patient Seen: 17:55 Interval history: Fadia feels better today. She is tolerating clear liquids with no more nausea or vomiting. She has been passing gas. Exam Vital Signs (past 8 hours): Oxygen Delivery Method Room Air Oxygen Flow Rate 0 Const General: No acute distress Objective Labs 12/24/23 05:50 12/24/23 05:50 [facility] Medical History (Updated 12/22/23 @ 07:16 by Jesenia Cohen RN) Anemia Easy bruisability Fibromyalgia Hypertrophic cardiomyopathy Hemorrhoid Depression Hypercholesteremia Hypertension Breast cancer (~2013) Rectal bleeding Aortic stenosis Surgical History (Updated 12/21/23 @ 12:10 by Jesenia Cohen RN) Hx of bilateral cataract extraction H/O lumpectomy Social History marital status: unknown household members: none lives independently: Yes occupational status: previously employed Smoking Status: Never smoker alcohol intake: never substance use type: does not use Assessment & Plan Assessment and plan (1) Colon cancer: Qualifiers: Colon location: ascending Qualified Code(s): C18.2 - Malignant neoplasm of ascending colon Status: Acute Plan Regular that today
[2023-12-28 18:49] VITALS: BP 131/70; PULSE 90; RESP 14; TEMP 36.9; O2SAT 95
[2023-12-28 19:00] VITALS: O2SAT 95
[2023-12-28] MEDS: ACETAMINOPHEN 325 MG TABLET 650 MG PO (21:06)
--- NOTE | 2023-12-29 06:09 | PC.NURSE ---
shift stacker: Patient is AxOx4, VSS, denies pain or nausea. Midline abd incision is open to air, no drainage noted. Ambulating w/ SBA & FWW. Had large, loose BM overnight. Ate saltine crackers & jello before bed, tolerating PO intake well. Plan of care ongoing.
[2023-12-29 08:00] VITALS: BP 131/63; PULSE 85; RESP 18; TEMP 37.1; O2SAT 95
--- NOTE | 2023-12-29 08:48 | CM.DPNOTE ---
DCP Note POULTRY BREEDER reviewed EMR. Per RN report, if pt tolerates breakfast today surgeon will dc her home with friend support. [facility] to follow. Anticipate dc home today. CM team will notify [facility]/send dc information when available. Transport with friend in POV. ROHINI Haque
[2023-12-29] MEDS: SODIUM CHLORIDE 0.9% FLUSH 10 ML IV (09:19)
[2023-12-29] MEDS: SERTRALINE 50 MG TABLET PO (09:19)
[2023-12-29] MEDS: ANASTROZOLE 1 MG TABLET PO (09:19)
[2023-12-29] MEDS: ENOXAPARIN 40 MG/0.4 ML SYRINGE SUBCUT (09:19)
[2023-12-29] MEDS: FERROUS SULFATE 325 MG TABLET PO (09:19)
--- NOTE | 2023-12-29 11:00 | PT.IPTN ---
Current Diagnoses Malignant neoplasm of ascending colon (12/23/23) Malignant neoplasm of colon, unspecified (12/23/23) Surgery Performed Operation Date: 12/23/23 10:45 Actual Procedures p Right Hemicolectomy(Right) - Ervin Reyes MD Physical Therapy Treatment Note M2 PT-IP Current Condition Start: 12/24/23 08:40 Freq: NEEDED Status: Active Protocol: Document 12/24/23 10:45 MB (Rec: 12/24/23 11:27 MB [id number]) Physical Therapy Current Condition Current Condition Evaluation Date 12/24/23 Treatment Diagnosis Pt with right colon cancer and s/p partial colectomy M3 PT-IP Subjective Start: 12/24/23 08:40 Freq: NEEDED Status: Active Protocol: Document 12/29/23 11:21 TS (Rec: 12/29/23 11:29 TS [id number]) Subjective Physical Therapy Visit Type Type Treatment Note Visit Start Time 11:00 Visit Stop Time 11:19 Number of PHYSICIAN ANESTHESIOLOGIST Visits 3 Physical Therapy Visit Comments Patient Comments Pt found resting in chair, would like to stay in the hospital one more day. Pt is agreeable to PT. M4 PT-IP Mobility and Gait Start: 12/24/23 08:40 Freq: NEEDED Status: Active Protocol: Document 12/29/23 11:21 TS (Rec: 12/29/23 11:29 TS [id number]) PT-Transfer Assessment Sit to and From Stand Sit to and from Stand Standby Assistance Equipment Transfer Assistive Device Gait Belt,Front Wheeled Walker Orthotic/Prosthetic Devices or Brace: No Comments Mobility Comments STS from chair SBA with FWW, pt required cues for pushing from arms of chair. She ambulated in ~200'SBA with FWW and a step thru gait, had no buckling or LOB. She performed steps x3 with B handrails SBA , pt tends to lean back slightly ascending stairs. She ambulated back to room, reported some SOB. pt was left in chair, all needs met. Gait Assessment Gait Gait Assistance Required: Standby Assistance Distance (Feet) 200 Able to Maintain Weight Bearing Status Yes During Gait Assistive Devices Assistive Device Gait Belt,Front Wheeled Walker Orthotic/Prosthetic Devices or Brace: No Gait Deviations General Gait Pattern Decreased Stride Length, Decreased Feet Clearance, Flexed Trunk Factors Limiting Gait Function Factors Limiting Gait Function Decreased Activity Tolerance, Pain,Poor Balance,Poor Safety Awareness Comments Gait Comments mobility in room Stair Climbing Assessment Evaluation Level of Assist On Stairs Standby Assistance Devices Stair Climbing Assistive Devices Left Railing,Right Railing Technique/Endurance Stair Climbing Direction Ascend and Descend Stair Climbing Technique Step to Step Number of Steps Climbed 3 Comments Stair Climbing Comments See mobility comments PT-Balance Assessment Sitting Balance and Reactions Static Sitting Balance Ability Good Dynamic Sitting Balance Ability Good Standing Balance and Reactions Static Standing Balance Ability Fair Dynamic Standing Balance Ability Fair Comments Other Balance Tests/Deviations/Treatment See mobility comments : M5 PT-IP Objective Assessments Start: 12/24/23 08:40 Freq: NEEDED Status: Active Protocol: Document 12/24/23 10:45 MB (Rec: 12/24/23 11:27 MB [id number]) Orientation Orientation/Cognition Level of Alertness Alert Orientation Name,Age,Birthday,Month,Date, Year,Day of Week,Place, Situation Language Function Ability No Deficits Noted Safety Awareness Decreased Safety Awareness Memory Description No Deficits Noted Comments Pt reports a history of falls d/t low blood (anemia) and she does not appear to have insight about ongoing fall and injury risk and that maybe having a different AD may be helpful in fall reduction. Pt has a life line that she does not have set up. Son to assist at d/c. Gross Range of Motion Upper Extremity ROM Impairments Defer to OT Lower Extremity ROM Assessment Within Functional Limits Strength Lower Extremity Strength Assessment Within Functional Limits M6 PT-IP Treatment Start: 12/24/23 08:40 Freq: NEEDED Status: Active Protocol: Document 12/29/23 11:21 TS (Rec: 12/29/23 11:29 [id number]) Physical Therapy Treatment Education Education Provided Safety M7 PT-IP Assessment and Plan Start: 12/24/23 08:40 Freq: NEEDED Status: Active Protocol: Document 12/29/23 11:21 TS (Rec: 12/29/23 11:29 [id number]) PT Summary Assessment and Plan Potential Rehabilitation Potential Fair Summary Impairments Pain,Balance,Bed Mobility, Transfers,Gait,Activity Tolerance Progress Towards Goals Progressing Toward Goals Assessment Summary Fadia continues to make progress with her mobility. She is SBA for STS with FWW, has good standing balance. She ambulated ~200' SBA with FWW. She performed steps x3 with B handrails, had no buckling or LOB. PT is recommending home with assist and HHPT. Goals Bed Mobility Goal Independent Transfer Goal Independent,Cane,Front Wheeled Walker Gait Goal Independent,Cane,Front Wheel Walker Gait Distance 100 Other Goals Pt will ascend and descend 2 steps with one rail to allow safe home mobility. Days to Meet Goals 5 Frequency of Treatment Frequency Of Treatment Once a Day Treatment Plan Physical Therapy Treatment Plan Bed Mobility Training,Transfer Training,Gait Training, Therapeutic Exercise,Balance Retraining,Post Op Education, Discharge Planning,Hot or Cold Pack Precautions Abdominal Surgery Precautions Log Roll,Lifting Restrictions, Gait Belt above Incisional Area Weight Bearing Status Weight Bearing Status Weight Bear as Tolerated Recommendations To Nursing Amount of Assist Needed Standby Assistance Discharge Recommendations PT Discharge Recommendations Home with Assistance,Home Health Other Discharge Recommendations Recommending use of FWW at home for increased safety, as pt is more stable with it than quad cane. Transportation Needs at Discharge Private Vehicle
--- NOTE | 2023-12-29 15:41 | CM.DPC ---
DCP Continued BRASS CHASER had lengthy dcp conversation with pt. Pt reports fear of going home due to feeling shaky on ambulation. Per PT/OT/RN/JERSEY KNITTER, pt is standby assist and ambulates well during therapy, no shakiness during ambulation with nursing staff or therapy. Per PT note, pt walked 200ft standby assistance this afternoon and did 3 stairs. Pt described in length the set up of her house and how she's not confident managing that right now and wants another night. In previous DCP conversations, pt had stated to this author/OT that she wants to dc home and can manage it. Pt wants another day to wrap her head around going home. When asked what one more day would accomplish in wrapping her head around home, pt changed the subject, you just don't understand my fear. BRASS CHASER explained that fear is not a medical reason to keep someone in the hospital, pt was adamant that if she were to dc this afternoon she would come right back to this ED. After lengthy conversation, pt does not appear to be open to discussing solutions to navigate her newfound barriers to home, but rather, continued to reiterate her reasons for wanting to remain another night. Pt reports her friend could've taken her home earlier today but cannot this afternoon/evening. Pt reports neither son can transport pt home this afternoon. Pt reported feeling frustrated, fearful, and angry with this author, why do you even care you're getting paid I'm not leaving today. Due to lack of forward progress navigating/overcoming pt's perceived barriers, BRASS CHASER ended dcp conversation. BRASS CHASER updated surgeon on pt's concerns. After speaking with pt, surgeon would like to keep pt another night. Per surgeon, pt agreeable to dc home with HH and friend support tomorrow. BRASS CHASER spoke with Emile from [facility] and updated her on plan to dc patient tomorrow. Per RN, pt's friend Keisha Mohini Garcia (p [phone]) called this morning and told RN that she was plan for ride home today. Could also take pt home tomorrow. Plan: anticipate dc home tomorrow with friend Keisha to transport. [facility] to follow. CM team will continue to follow closely. ROHINI Haque
--- NOTE | 2023-12-29 15:47 | PM.PNPO.1 ---
Subjective Subjective Date Patient Seen: 12/29/23 Time Patient Seen: 15:47 Interval history: tolerating diet does not feel ready for discharge home today Exam Vital Signs (past 8 hours): - 12/29/23 07:56 12/29/23 08:00 Temperature 98.7 F Pulse Rate 85 Respiratory Rate 18 Blood Pressure 131/63 Pulse Oximetry 95 Oxygen Delivery Method Room Air Oxygen Flow Rate 0 Oxygen Delivery Method Room Air Oxygen Flow Rate 0 Narrative Exam Narrative: Gen-Adult woman alert and oriented Abdomen-Soft, appropriately tender to palpation Objective Labs 12/24/23 05:50 12/24/23 05:50 PFSH Medical History (Updated 12/22/23 @ 07:16 by Jesenia Cohen, SIMON) Anemia Easy bruisability Fibromyalgia Hypertrophic cardiomyopathy Hemorrhoid Depression Hypercholesteremia Hypertension Breast cancer (~2013) Rectal bleeding Aortic stenosis Surgical History (Updated 12/21/23 @ 12:10 by Jesenia Cohen, RN) Hx of bilateral cataract extraction H/O lumpectomy Social History marital status: unknown household members: none lives independently: Yes occupational status: previously employed Smoking Status: Never smoker alcohol intake: never substance use type: does not use Assessment & Plan Post-op Postoperative Procedures: Procedures Operation Date: 12/23/23 10:45 Actual Procedure Side Surgeon p Right Hemicolectomy Right Ervin Reyes MD Postoperative status narrative: POD 6 sp right hemicolectomy -Reg diet -DC home tomorrow if unable will need placement SCDs and pLovenox
--- NOTE | 2023-12-29 16:24 | OT.IPNOTE ---
Attempted to see pt for OT services. Pt just finished speaking with CM and pt appears to be feeing anxious about going home alone at this time. Pt declined OT services. Will continue to follow.
[2023-12-29 19:00] VITALS: O2SAT 95
[2023-12-29 20:00] VITALS: BP 156/70; PULSE 103; RESP 16; TEMP 37; O2SAT 95
[2023-12-29] MEDS: ACETAMINOPHEN 325 MG TABLET 650 MG PO (20:18)
[2023-12-30] MEDS: SODIUM CHLORIDE 0.9% FLUSH 10 ML IV (01:32)
[2023-12-30 07:00] VITALS: BP 119/52; PULSE 64; RESP 16; TEMP 36.8; O2SAT 96
[2023-12-30] MEDS: ANASTROZOLE 1 MG TABLET PO (08:52)
[2023-12-30] MEDS: FERROUS SULFATE 325 MG TABLET PO (08:52)
[2023-12-30] MEDS: ENOXAPARIN 40 MG/0.4 ML SYRINGE SUBCUT (08:52)
[2023-12-30] MEDS: SERTRALINE 50 MG TABLET PO (08:52)
--- NOTE | 2023-12-30 11:54 | PC.NURSE ---
Addendum entered by Althea Chakraborty R.N. 12/30/23 12:45: Medication that was kept in inpatient pharmacy returned to patient prior to discharge by pharmacist Ozzy. Original Note: Day shift: Discharge instructions gone over with patient and patient's friend Keisha by SIMON Henley PIV d/c'ed prior to discharge. All belongings with patient. SIMON Betancourt escorted patient via wheelchair to exit where friend plans to drive her home.
--- NOTE | 2023-12-30 13:40 | CM.DPNOTE ---
DCP Note SAFETY ATTENDANT reviewed EMR. Per surgeon, pt to dc home with friend and HH today. Per nursing staff, pt continues to ambulate well today. no SOB or shaking identified. SAFETY ATTENDANT met with pt in room. Agreeable for home with friend today. Friend Keisha is from her jainism and will assist her at home. Keisha on her way to p/u pt now. Pt reports no other CM needs. SAFETY ATTENDANT spoke with Vanesa from [facility] and updated her on pt's dc. Vanesa reports having f2f/order, and will keep an eye out for the dc summary. SREE Workman kindly agreed to fax available dc information to [facility] . Plan: home with friend and [facility] today. CM team will continue to follow as needed. ROHINI Haque
--- NOTE | 2024-01-01 09:43 | PM.DS.1 ---
History of Present Illness History of Present Illness Date Patient Seen: 01/01/24 Time Patient Seen: 09:43 Chief complaint: right Lap hemicolectomy Narrative: Fadia is an 83-year-old woman with symptomatic anemia found to have large ulcerated mass of the right colon. Pathology demonstrates adenocarcinoma in staging imaging suggest mesenteric lymphadenopathy no evidence of distant disease. She presents for a elective laparoscopic-assisted right hemicolectomy. Discharge Providers Provider Date of admission: 12/23/23 09:06 Discharge Date: 12/30/23 Primary care physician: TIO Mane Consults: 12/23/23 13:55 Consult to Discharge Planning Routine Comment: Consult to Occupational Therapy Evaluate & Treat Comment: Physician Instructions: Evaluate and treat Consult to Physical Therapy Evaluate & Treat Comment: Physician Instructions: Evaluate and Treat 12/23/23 18:34 Consult to Dietitian, Adult Routine Comment: Reason For Exam: weight loss 12/25/23 09:06 Consult to Home Health Routine Comment: PT, OT, Bath Aide Reason For Exam: Home Health Services Discharge provider: Ervin Reyes MD Summary Hospital Course Discharge Diagnosis: Colon cancer Hospital Course: Fadia underwent a laparoscopic-assisted right hemicolectomy December 23, 2023. She tolerated the operation well. She had a postoperative ileus and this resolved spontaneously. At the time of discharge she is ambulatory, pain is well controlled and she is tolerant of a regular diet having return of bowel function. Exam Vital Signs (past 8 hours): Oxygen Delivery Method Room Air Oxygen Flow Rate 0 Narrative Exam Narrative: General adult woman alert oriented no acute distress Chest nonlabored respiration Abdomen midline incision clean dry intact. Objective Labs 12/24/23 05:50 12/24/23 05:50 [facility] Medical History (Updated 12/22/23 @ 07:16 by Jesenia Cohen RN) Anemia Easy bruisability Fibromyalgia Hypertrophic cardiomyopathy Hemorrhoid Depression Hypercholesteremia Hypertension Breast cancer (~2013) Rectal bleeding Aortic stenosis Surgical History (Updated 12/21/23 @ 12:10 by Jesenia Cohen RN) Hx of bilateral cataract extraction H/O lumpectomy Social History marital status: unknown household members: none lives independently: Yes occupational status: previously employed Smoking Status: Never smoker alcohol intake: never substance use type: does not use Discharge Plan Discharge Plan Patient Disposition: Home Provider Discharge Comment: -Okay to shower -Do not submerge wounds in water until seen in follow-up. -No lifting >10 lbs x 4 weeks. -Walking only for exercise for 4 weeks. -No driving while taking narcotics. Discharge orders & Medications Prescriptions: New acetaminophen 325 mg Tablet 650 mg PO Q6H PRN (Reason: Fever/Mild Pain (1-3)) Qty: 60 0RF ferrous sulfate 325 mg (65 mg iron) Tablet 325 mg PO DAILY Qty: 30 0RF ibuprofen 600 mg Tablet 600 mg PO Q6H PRN (Reason: Fever/Mild Pain (1-3)) Qty: 60 0RF oxycodone 5 mg Tablet 5 mg PO Q3H PRN (Reason: Pain, Moderate (4-6)) Qty: 15 0RF Continued anastrozole 1 mg tablet 1 mg PO DAILY sertraline 50 mg tablet 50 mg PO DAILY disopyramide phosphate 100 mg capsule 100 mg PO BID nadolol 40 mg tablet 40 mg PO BEDTIME Discontinued metronidazole 500 mg tablet 1,000 mg PO .COMPLEX Qty: 6 0RF Rx Instructions: 1,000 mg PO 1 g PO; TAKE 2 tabs at 1PM, 2 PM, and 10 PM the day prior to surgery; Follow up/Referrals: Ervin Reyes MD [Physician] - (2 wk postop) Belén Enciso ARNP [Primary Care Provider] - Diet/Activity/Treatments Diet: Diet as Tolerated Skin/Wound/Dressing Care Report to your healthcare provider any signs of infection, such as:: chills, fever, night sweats, increased pain and unusual drainage Visit Report/Discharge Packet Instructions: DI for Colectomy Stand Alone Forms: Patient Portal/API, Stroke Signs & Symptoms, Surgery Discharge Discharge Data Primary Care Provider: Belén Enciso
== END 2023-12-30 11:57 | disposition home health service (06) | DRG 329 ==
LOC: AC 12-25 11:20 → ICU 12-27 09:20 → AC 12-27 09:34
PROVIDERS: Anesthesiology; Admitting Provider Surgery; PCP Nurse Practitioner Family; Referring Provider Surgery; Visit Provider Surgery
PROC: 0DTF0ZZ Resection of Right Large Intestine, Open Approach (ICD-10-PCS; CPT 44140; principal; 2023-12-23 10:45)
DX: C18.0 Malignant neoplasm of cecum (principal); E43 Unspecified severe protein-calorie malnutrition; K91.89 Other postprocedural complications and disorders of digestive system; K56.7 Ileus, unspecified; R59.1 Generalized enlarged lymph nodes; D50.9 Iron deficiency anemia, unspecified; F32.A Depression, unspecified; I10 Essential (primary) hypertension; C50.919 Malignant neoplasm of unspecified site of unspecified female breast; Z68.24 Body mass index [BMI] 24.0-24.9, adult
CPT/HCPCS: 36415; 36430; 44160; 80048; 82962; 85025; 85027; 86850; 86900; 86901; 97116; 97161; 97165; 97530; 97535; P9016; J0136; J1100; J1650; J2405; J2543; J2704; J3010; J3490

== ENCOUNTER 2024-06-24 13:38 | Emergency (ER) | payer MEDICARE, BC, SELFPAY ==
[2023-12-23 18:28] VITALS: BMI 24.8
[2024-06-24 14:01] VITALS: BP 179/77; PULSE 59; RESP 18; TEMP 36.9; O2SAT 96; BMI 27.1
--- NOTE | 2024-06-24 14:08 | DI.CT.S_ITS ---
PROCEDURE: CT HEAD/BRAIN WO CON INDICATIONS: fall TECHNIQUE: Noncontrast 4.5 mm thick angled axial sections acquired from the foramen magnum to the vertex, with coronal and sagittal reformats. For radiation dose reduction, the following was used: automated exposure control, adjustment of mA and/or kV according to patient size. COMPARISON: None. FINDINGS: Image quality: Diagnostic. CSF spaces: Basal cisterns are patent. No extra-axial fluid collections. The ventricles are symmetric in size and shape. Brain: No intracranial bleeds or masses. There is cerebral volume loss for age, with resultant ventricular and sulcal prominence. There are periventricular and deep white matter chronic small vessel ischemic changes. There is intracranial internal carotid artery atherosclerosis. Skull and face: Calvarium and visualized facial bones appear intact, without suspicious lesions. Sinuses: Visualized sinuses and mastoids are clear. IMPRESSION: No acute intracranial pathology. Dictated by: Tam Marcos M.D. on 06/24/2024 at 14:48 Approved by: Tam Marcos M.D. on 06/24/2024 at 14:54
--- NOTE | 2024-06-24 14:08 | DI.RAD.S_ITS ---
PROCEDURE: XR HAND LT MIN 3V INDICATIONS: fall, pain TECHNIQUE: 3 views of the hand(s) acquired. COMPARISON: [facility], CR, XR HUMERUS LT 2V, 06/24/2024, 14:15. FINDINGS: Bones: No fractures or dislocations. 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 Carpal bones are normally aligned. No suspicious bony lesions. Chondrocalcinosis. Soft tissues: No suspicious soft tissue calcifications. IMPRESSION: No acute bony abnormality. 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 Dictated by: Tam Marcos M.D. on 06/24/2024 at 14:54 Approved by: Tam Marcos M.D. on 06/24/2024 at 14:56
--- NOTE | 2024-06-24 14:08 | DI.RAD.S_ITS ---
PROCEDURE: XR HUMERUS LT 2V INDICATIONS: fall, pain TECHNIQUE: 2 views of the humerus were acquired. COMPARISON: None. FINDINGS: Bones: Markedly comminuted displaced fracture of the humeral head and neck with associated overriding, and pseudosubluxation at the glenohumeral joint. No suspicious bony lesions. Soft tissues: No suspicious soft tissue calcifications. IMPRESSION: Markedly comminuted, displaced fracture of the humeral head and neck with associated overriding and pseudosubluxation. Dictated by: Tam Marcos M.D. on 06/24/2024 at 14:47 Approved by: Tam Marcos M.D. on 06/24/2024 at 14:47
--- NOTE | 2024-06-24 15:00 | ED_ITS ---
HPI - Fall <Skye Espinoza PA-C - Last Filed: 06/25/24 10:46> General Chief Complaint: Fall Stated Complaint: Fall, face injury no blood thinners Time Seen by Provider: 06/24/24 14:44 Source: patient Mode of arrival: Wheelchair History of Present Illness HPI Narrative: Patient is a very pleasant 83-year-old female that presents to the emergency room department with family after she sustained a fall today while playing Frisbee. Patient was playing Frisbee on the grass. Fell tripped onto an outstretched left hand. She sustained an injury to the left hand, and left shoulder. And she unfortunately hit her face. She ended up falling on grass but landing on cement. She sustained an abrasion to the left dorsal aspect of her hand and hit her left wrist. She also sustained an abrasion to the left side of her face just lateral to her left eye. Striking her head with no loss of consciousness. She also then struck her left shoulder and has a substantial amount of left shoulder discomfort and pain with limited range of motion. Limited treatment prior to being seen here in the emergency department. She has no other further complaints. She ambulated into the emergency room department with the assistance of family. She is currently sitting in a wheelchair. She has no other physical complaints currently at this time. Related Data Home Medications Medication Instructions Recorded Confirmed anastrozole 1 mg tablet 1 mg PO DAILY 12/07/23 02/11/24 disopyramide phosphate 100 mg 100 mg PO BID 12/07/23 02/11/24 capsule nadolol 40 mg tablet 40 mg PO BEDTIME 12/07/23 02/11/24 sertraline 50 mg tablet 50 mg PO DAILY 12/07/23 02/11/24 Previous Rx's Medication Instructions Recorded acetaminophen 325 mg tablet 650 mg (2 x 325 mg) PO Q6H PRN 12/30/23 Fever/Mild Pain (1-3) #60 tabs ferrous sulfate 325 mg (65 mg 325 mg PO DAILY #30 tabs 12/30/23 iron) tablet ibuprofen 600 mg tablet 600 mg PO Q6H PRN Fever/Mild Pain 12/30/23 (1-3) #60 tabs oxycodone 5 mg tablet 5 mg PO Q3H PRN Pain, Moderate 12/30/23 (4-6) #15 tabs ondansetron HCl 4 mg tablet 4 mg PO Q8-12H PRN nausea and 06/24/24 vomiting #14 tabs tramadol 50 mg tablet 50 mg PO Q8H PRN pain #14 tabs 06/24/24 Allergies Allergy/AdvReac Type Severity Reaction Status Date / Time No Known Drug Allergies Allergy Verified 02/11/24 10:33 Review of Systems <Skye Espinoza PA-C - Last Filed: 06/25/24 10:46> Review of Systems Narrative: Negative except as above Musculoskeletal Comments: Left shoulder pain, left facial pain, left wrist pain, left hand pain. Patient History <Skye Espinoza PA-C - Last Filed: 06/25/24 10:46> Medical History Anemia Easy bruisability Fibromyalgia Hypertrophic cardiomyopathy Hemorrhoid Depression Hypercholesteremia Hypertension Breast cancer (~2013) Rectal bleeding Aortic stenosis Surgical History Hx of bilateral cataract extraction H/O lumpectomy Social History marital status: unknown household members: none lives independently: Yes occupational status: previously employed Smoking Status: Never smoker alcohol intake: never substance use type: does not use Smoking Status: Never smoker Substance Use Type: does not use Exam <Skye Espinoza PA-C - Last Filed: 06/25/24 10:46> Initial Vital Signs Initial Vital Signs: Vital Signs Temperature 98.4 F 06/24/24 14:01 Pulse Rate 59 L 06/24/24 14:01 Respiratory Rate 18 06/24/24 14:01 Blood Pressure 179/77 H 06/24/24 14:01 Pulse Oximetry 96 06/24/24 14:01 Oxygen Delivery Method Room Air 06/24/24 14:01 Reviewed Const General: cooperative, healthy appearing, comfortable, well developed, well groomed, No acute distress and No in distress Nutritional Appearance: average body habitus and well nourished Orientation: Orientation [facility] Head: abrasion (Abrasion and skin tear to the lateral aspect of her left face just lateral ) Nose: external nose normal, nares normal and nasal mucous membranes and turbinates normal Eyes General: Yes appearance normal, both eyes and all related structures Pupils: PERRL EOM: EOM intact bilaterally Skin Wounds: wounds noted Other: Patient has a skin tear/abrasion/nonsuturable injury associated with her fall, it is horizontal in nature just lateral to the left eye it is about 5 cm in length. Currently not bleeding. She then has multiple abrasions to the dorsal aspect of her left hand. There is no soft tissue swelling. She is some minor ecchymosis noted with both of the abrasions and injury to her face. Neuro General: patient alert, patient awake, patient oriented x3 and oriented Cranial Nerves: CN's II-XI intact bilaterally Cognition: normal cognition Speech: speech normal Motor: muscle tone normal throughout Extrem Other: Patient is in a wheelchair. Range of motion of the lower extremities is intact. Right upper extremity no issues or problems, cap refill is preserved. Pulses are present. Range of motion is intact. The patient has had previous total shoulder replacement associated with the previous injury. The patient has limited range of motion of the left shoulder due to discomfort and pain. She does not have any pain in the humerus or elbow. She has minor discomfort in the left wrist. No obvious deformity. Pulses are present. Cap refill is preserved. She can move her fingers. She is multiple abrasions on the dorsal aspect of her left hand. Psych Appearance: grossly normal and well kempt Mental Status: mental status grossly normal Speech and Movement: speech and movement normal Mood: congruent mood Affect: normal affect Attitude: cooperative Thought Process: normal Thought Content: normal Judgment: judgment good <Taiwo Hall DO - Last Filed: 06/25/24 10:49> Initial Vital Signs Initial Vital Signs: Vital Signs Temperature 98.4 F 06/24/24 14:01 Pulse Rate 59 L 06/24/24 14:01 Respiratory Rate 18 06/24/24 14:01 Blood Pressure 179/77 H 06/24/24 14:01 Pulse Oximetry 96 06/24/24 14:01 Oxygen Delivery Method Room Air 06/24/24 14:01 Procedures <MERON Grajeda Last Filed: 06/25/24 10:46> Orthopedic Splinting/Casting Injury #1: Additional Comments: Patient was placed in a sling for comfort Course <MERON Grajeda Last Filed: 06/25/24 10:46> Orders Ordered: ED Orders 06/24/24 14:08 CT head/brain wo con Stat XR hand LT min 3V Stat XR humerus LT 2V Stat Vital Signs Vital signs: Vital Signs - 8 hr 06/24/24 14:01 Temperature 98.4 F Pulse Rate 59 L Respiratory Rate 18 Blood Pressure 179/77 H Pulse Oximetry 96 Oxygen Delivery Method Room Air <Taiwo Hall DO - Last Filed: 06/25/24 10:49> Orders Ordered: ED Orders 06/24/24 14:08 CT head/brain wo con Stat XR hand LT min 3V Stat XR humerus LT 2V Stat Vital Signs Vital signs: Vital Signs - 8 hr 06/24/24 14:01 Temperature 98.4 F Pulse Rate 59 L Respiratory Rate 18 Blood Pressure 179/77 H Pulse Oximetry 96 Oxygen Delivery Method Room Air MDM - Fall <Skye Espinoza PA-C - Last Filed: 06/25/24 10:46> Imaging Data Extremity x-ray #1: Radiologist's Impression: [address] [address] XRay Report Signed Patient: Fadia Peters MR#: [id number] : 1940 Acct:[id number] Age/Sex: 83 / F Date of Service: 06/24/24 Loc: ED Accession Number: [id number] Procedure: XR hand LT min 3V Ordering Provider: Taiwo Hall D.O. PROCEDURE: XR HAND LT MIN 3V INDICATIONS: fall, pain TECHNIQUE: 3 views of the hand(s) acquired. COMPARISON: [facility], , XR HUMERUS LT 2V, 06/24/2024, 14:15. FINDINGS: Bones: No fractures or dislocations. 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 Carpal bones are normally aligned. No suspicious bony lesions. Chondrocalcinosis. Soft tissues: No suspicious soft tissue calcifications. IMPRESSION: No acute bony abnormality. 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 Dictated by: Tam Marcos M.D. on 06/24/2024 at 14:54 Approved by: Tam Marcos M.D. on 06/24/2024 at 14:56 CT scan - head: Radiologist's Impression: [address] [address] [address] Scan Report Signed Patient: Fadia Peters MR#: [id number] : 1940 Acct:[id number] Age/Sex: 83 / F Date of Service: 06/24/24 Loc: ED Accession Number: [id number] Procedure: CT head/brain wo con Ordering Provider: Taiwo Hall D.O. PROCEDURE: CT HEAD/BRAIN WO CON INDICATIONS: fall TECHNIQUE: Noncontrast 4.5 mm thick angled axial sections acquired from the foramen magnum to the vertex, with coronal and sagittal reformats. For radiation dose reduction, the following was used: automated exposure control, adjustment of mA and/or kV according to patient size. COMPARISON: None. FINDINGS: Image quality: Diagnostic. CSF spaces: Basal cisterns are patent. No extra-axial fluid collections. The ventricles are symmetric in size and shape. Brain: No intracranial bleeds or masses. There is cerebral volume loss for age, with resultant ventricular and sulcal prominence. There are periventricular and deep white matter chronic small vessel ischemic changes. There is intracranial internal carotid artery atherosclerosis. Skull and face: Calvarium and visualized facial bones appear intact, without suspicious lesions. Sinuses: Visualized sinuses and mastoids are clear. IMPRESSION: No acute intracranial pathology. Dictated by: Tam Marcos M.D. on 06/24/2024 at 14:48 Approved by: Tam Marcos M.D. on 06/24/2024 at 14:54 Extremity x-ray #3: Radiologist's Impression: [address] [address] XRay Report Signed Patient: Fadia Peters MR#: [id number] : 1940 Acct:[id number] Age/Sex: 83 / F Date of Service: 06/24/24 Loc: ED Accession Number: [id number] Procedure: XR humerus LT 2V Ordering Provider: Taiwo Hall D.O. PROCEDURE: XR HUMERUS LT 2V INDICATIONS: fall, pain TECHNIQUE: 2 views of the humerus were acquired. COMPARISON: None. FINDINGS: Bones: Markedly comminuted displaced fracture of the humeral head and neck with associated overriding, and pseudosubluxation at the glenohumeral joint. No suspicious bony lesions. Soft tissues: No suspicious soft tissue calcifications. IMPRESSION: Markedly comminuted, displaced fracture of the humeral head and neck with associated overriding and pseudosubluxation. Dictated by: Tam Marcos M.D. on 06/24/2024 at 14:47 Approved by: Tam Marcos M.D. on 06/24/2024 at 14:47 [facility] Narrative Medical decision making narrative: Pleasant 83-year-old female that unfortunately fell while playing Frisbee today she is on grass and ended up landing on cement when she fell. No loss of consciousness. Struck her face, unsuitable abrasion/skin tear to the lateral aspect of her face. Multiple abrasions to the left hand, where she has discomfort and pain, left wrist pain, left shoulder pain with limited range of motion due to substantial discomfort and pain. Limited treatment prior to being seen here in the emergency room department. Head CT is negative for any acute findings Left wrist is negative for fractures Unfortunately her left shoulder is positive for comminuted left humeral head and neck fracture that is displaced. Patient will be placed in a sling Zofran And pain medication will be sent to her local pharmacy Supportive therapy ED precautions were given to the patient about the medications Referral to the orthopedist on-call is provided for the patient Patient is discharged with family Differential diagnosis; fall, facial abrasion, left hand abrasion, left wrist contusion/wrist sprain, left humeral head and neck comminuted fracture needing follow up with ortho. Discharge Plan Departure Patient Disposition: Home Clinical Impression: Fracture of neck of left humerus Qualifiers: Encounter type: initial encounter Fracture type: closed Qualified Code(s): S42.212A - Unspecified displaced fracture of surgical neck of left humerus, initial encounter for closed fracture Activity Restrictions/Additional Instructions: Sling for comfort. You will need to follow up with Orthopedics his information is on the discharge paperwork. Please call on Thursday to make an appointment. Ice the shoulder. Sling at all times. Prescriptions: New tramadol 50 mg tablet 50 mg PO Q8H PRN (Reason: pain) Qty: 14 0RF ondansetron HCl 4 mg tablet 4 mg PO Q8-12H PRN (Reason: nausea and vomiting) Qty: 14 0RF No Action anastrozole 1 mg tablet 1 mg PO DAILY sertraline 50 mg tablet 50 mg PO DAILY disopyramide phosphate 100 mg capsule 100 mg PO BID nadolol 40 mg tablet 40 mg PO BEDTIME acetaminophen 325 mg Tablet 650 mg PO Q6H PRN (Reason: Fever/Mild Pain (1-3)) Qty: 60 0RF ferrous sulfate 325 mg (65 mg iron) Tablet 325 mg PO DAILY Qty: 30 0RF ibuprofen 600 mg Tablet 600 mg PO Q6H PRN (Reason: Fever/Mild Pain (1-3)) Qty: 60 0RF oxycodone 5 mg Tablet 5 mg PO Q3H PRN (Reason: Pain, Moderate (4-6)) Qty: 15 0RF Referrals: Itz Noble MD [Physician] - (Patient has a left humeral neck fracture and comminuted humeral head fracture You are being referred to the provider (or provider group) listed but no appointment has been made. Please call the provider?s office within the next day or two at the phone number above to make an appointment.) Belén Enciso ARNP [Primary Care Provider] - Stand Alone Forms: Patient Portal/API ED Sign-out <Taiwo Hall DO - Last Filed: 06/25/24 10:49> [facility]: Dr Hall Co-Sign Statement: I was available for consultation during this patient's emergency department visit. This chart is signed by myself for administrative purposes only. I did not have direct contact with this patient during this visit. They were seen independently by the APC.
[2024-06-24 16:24] VITALS: BP 149/70; PULSE 62; RESP 16; TEMP 36.7; O2SAT 96
== END 2024-06-24 16:25 | disposition home or self-care (01) ==
PROVIDERS: Emergency Provider Physician Assistant; PCP Nurse Practitioner Family
DX: S42.212A Unspecified displaced fracture of surgical neck of left humerus, initial encounter for closed fracture (principal); S09.93XA Unspecified injury of face, initial encounter; W01.0XXA Fall on same level from slipping, tripping and stumbling without subsequent striking against object, initial encounter
CPT/HCPCS: 70450; 73060; 73130; 99283; 99284

== ENCOUNTER → 2024-06-29 10:50 | Outpatient (CLI) | payer MEDICARE, BC, SELFPAY ==
[2023-12-23 18:28] VITALS: BMI 24.8
--- NOTE | 2024-06-29 10:51 | DI.CT.S_ITS ---
PROCEDURE: CT UE LT WO CON INDICATIONS: OPEN FRACTURE OF L HUMERUS W/NONUNION TECHNIQUE: Noncontrast 0.75 mm thick sections acquired from the acromioclavicular joint to the inferior scapula, with coronal and sagittal reformatting. COMPARISON: [facility], CR, XR HUMERUS LT 2V, 06/24/2024, 14:15. FINDINGS: Image quality: Excellent. Bones: As seen on previous left humeral radiograph, there is a comminuted fracture involving proximal left humeral shaft with fracture line extending to involve greater and lesser tuberosities. There is superior migration of humeral shaft in relation to humeral head with up to 2 cm overlapping at fracture site. Posterior and laterally displaced fractured greater tuberosity fragments are seen with up to 9 mm lateral displacement of fractured fragment. Slight anterior and medially displaced lesser tuberosity fragment is also seen. No significant callus formation is noted at fracture site at this time. No other fracture or dislocation. Moderate acromioclavicular joint osteoarthritic changes are seen with joint space narrowing and downward osteophyte formation depressing this junction of supraspinatus. No suspicious bony lesions. The visualized left upper to mid ribs are intact. Soft tissues: There is significant soft tissue swelling and edema surrounding proximal humeral fracture site. Moderate joint effusion is seen concerning for hemarthrosis. No definite calcified intra-articular loose bodies. No definite full-thickness rotator cuff tendon rupture. Mild supraspinatus muscle atrophy is seen on sagittal images. There is no axillary lymphadenopathy by size criteria. The visualized left lung field is clear. IMPRESSION: 1. Acute comminuted, impacted and displaced fracture involving left proximal humeral shaft with fracture line extending to involve both greater and lesser tuberosities as described in detail above. 2. Significant soft tissue swelling edema surrounding proximal humeral fracture site. Moderate joint effusion concerning for hemarthrosis. No definite calcified intra-articular loose bodies. 3. No other fracture or dislocation. No suspicious bony lesions. Moderate acromioclavicular joint osteoarthritis. 4. Mild supraspinatus muscle atrophy. No definite full-thickness rotator cuff tendon rupture. Dictated by: Mor Crowell M.D. on 06/29/2024 at 15:34 Approved by: Mor Crowell M.D. on 06/29/2024 at 15:37
== END ==
PROVIDERS: PCP Nurse Practitioner Family; Referring Provider Orthopaedic Surgery; Visit Provider Orthopaedic Surgery
DX: S42.292K Other displaced fracture of upper end of left humerus, subsequent encounter for fracture with nonunion (principal); M19.012 Primary osteoarthritis, left shoulder; M25.412 Effusion, left shoulder; X58.XXXD Exposure to other specified factors, subsequent encounter
CPT/HCPCS: 73200